=== PATIENT | male | born 1975 | race Caucasian/White ===

== ENCOUNTER 2023-08-31 17:15 | Observation (INO) ==
[2023-08-31 18:06] LABS: Basophils # (auto) 0.06 K/uL (0.00-0.20); Basophils % (auto) 0.9 %; Eosinophils # (auto) 0.16 K/uL (0.00-0.50); Eosinophils % (auto) 2.4 %; Hemoglobin 14.9 g/dl (14.0-18.0); Immature Granulocytes # (auto) 0.01 K/uL (0.01-0.20); Immature Granulocytes % (auto) 0.2 %; Lymphocytes # (auto) 1.33 K/uL (1.20-3.40); Lymphocytes % (auto) 20.3 %; Mean Corpuscular Hemoglobin 29.9 pg (25.0-34.0); Mean Corpuscular Hgb Conc 34.7 g/dL (32.0-36.0); Mean Corpuscular Volume 86.2 fL (80.0-100.0); Monocytes # (auto) 0.56 K/uL (0.11-0.59); Monocytes % (auto) 8.5 %; Neutrophils # (auto) 4.44 K/uL (1.40-6.50); Neutrophils % (auto) 67.7 %; Platelet Count 250 K/uL (130-400); RDW Coefficient of Variation 13.1 % (11.5-14.5); RDW Standard Deviation 40.8 fL (36.4-46.3); Red Blood Count 4.99 M/uL (4.70-6.10); White Blood Count 6.56 K/ul (4.8-10.8)
[2023-08-31 18:16] LABS: Albumin Globulin Ratio 1.8 (0.9-2); BUN Creatinine Ratio 23.3 (10-20); Bilirubin,Total 0.5 mg/dl (0.2-1.0); Calcium 9.7 mg/dl (8.6-10.3); Creatinine Clr Calc Pharmacy 97.1 ml/min; Est GFR (African American) 116.6 ml/min; Est GFR (Non-African American) 100.6 ml/min; Globulin 2.8 gm/dl (2.5-4.0); Total Protein 7.8 gm/dl (6.0-8.3)
[2023-08-31 18:22] LABS: Troponin I High Sensitivity 7.4 pg/ml (0-20)
[2023-08-31 18:25] LABS: Partial Thromboplastin Ratio 1.1; Partial Thromboplastin Time 29.9 Seconds (21.0-31.0); Prothrombin Time 11.1 Seconds (9.0-12.0)
--- NOTE | 2023-08-31 19:01 | XRay Report ---
SINGLE VIEW CHEST CLINICAL HISTORY: Atypical chest pain. FINDINGS: A PA chest radiograph is compared to study dated 07/28/2023. The cardiomediastinal silhouett e is unremarkable. The lungs and pleural spaces are clear. No pneumothorax is seen. The bony thorax i s grossly intact. There is minimal thoracic scoliosis. IMPRESSION: No active disease in the chest. ACT 112: Negative or not required by law. Electronically signed by: Arash Guzman M.D. 08/31/2023 7:00 PM
--- NOTE | 2023-09-01 01:37 | History & Physical Report ---
Date of Service September 01, 2023 Assessment & Plan (1) Chest pain: Plan: 48-year-old male with past med significant for hypertension, chronic coronary microvascular dysfunction, history of coronary vasospasm, anxiety, marijuana smoker presents with chest pain. Chest pain History of coronary vasospasm as mentioned in HPI EKG and initial 2 sets of troponin negative We will follow serial enzymes and echo Consult cardiology in a.m. Monitoring telemetry Skin rash States since mid June is getting macular rash on his extremities involving palm. Mostly happens when he exerts We will check NIK, rheumatoid factor, CRP and hep B and C studies Needs follow-up Hypertension Continue amlodipine and Imdur DVT prophylaxis SCD's Disposition Med/telemetry Full code History of Present Illness Chief Complaint: Chest pain Primary Care Provider: Manuel Cobb MD 48-year-old male with past med significant for hypertension, chronic coronary microvascular dysfunction, history of coronary vasospasm, anxiety, marijuana smoker presents with chest pain. Patient states it all started in June hen he had a rash on his extremities and in his palm and saw PCP and found high blood pressure and was prescribed amlodipine-benazepril. In July [facility] because of chest pain. Troponin were elevated initially 70s and trended up to 190's. Had cardiac cath that showed multivessel disease with 90% proximal LAD lesion. As his coronary vessels were of narrow caliber was transferred to [facility]. At [place] he had another cath with nitroglycerin challenge which showed normal coronaries and thought his symptoms and previous cath findings from coronary vasospasm. He was discharged on amlodipine and Imdur. And advised to stop marijuana smoking. Patient says since then he is doing okay though he had constant mild chest discomfort. He is walking 2 miles a day with some jogging in between. Last Sunday and today the chest pain was 7/10 severity requiring nitroglycerin which helped. Since June he still getting a rash on and off mostly when exerting outside and is worried that he has some bacterial or viral infection and causing all his chest pains. Currently resting comfortably and hemodynamically stable Past medical history. As mentioned above. Past surgical history. Cardiac cath. Dental surgery. Appendectomy. Social history. No smoking. Alcohol socially. Smokes marijuana. Family history. Maternal grandfather has alcoholism. Brother of drug overdose. Father had heart attack and cardiac bypass. Mother-has hypertension. Allergies Allergy/AdvReac Type Severity Reaction Status Date / Time No Known Drug Allergies Allergy Unknown Verified 08/31/23 20:03 Home Medications Medication Instructions Recorded Confirmed Type multivitamin 1 tab PO QAM 07/28/23 08/31/23 History amlodipine 5 mg tablet 5 mg PO QAM 08/31/23 08/31/23 History isosorbide mononitrate 30 mg 30 mg PO QAM 08/31/23 08/31/23 History tablet,extended release 24 hr nitroglycerin 0.4 mg sublingual 0.4 mg sublingual UD PRN Chest Pain 08/31/23 08/31/23 History tablet Past Med/Surg History Medical History HTN, goal below 130/80 Non-ST elevation [place] (NSTEMI) Anxiety HTN (hypertension) Surgical History Hx of appendectomy Family History Other Coronary heart disease Diabetes Family history of Yap's esophagus Social History Smoking Status: Never smoker Hx Alcohol Use: Yes Hx Substance Use: No Preferred Language: Pashto Communication Ability: Effective Oven Laborer Required: No Beliefs That Will Affect Care: None Current Living Situation: Alone Feels Safe at Home: Yes Safety Concerns: Feels Safe At This Time Assistive Devices: Glasses Review of Systems Review of Systems: All systems reviewed & are unremarkable except as noted in HPI & below Physical Exam Physical Exam: General-not in distress Head- atraumatic Eyes- PERRL. ENT- oropharynx clear Neck- supple, no JVD. Lungs- clear to auscultation , no wheezing or crackles. Heart- regular rate and rhythm; no murmur, no gallop. Abdomen- normal bowel sounds, soft, nontender, no distension. Extremities- no pretibial edema, no erythema. Neuro- alert, oriented x 3; PERRL, no facial palsy; no dysarthria; moves extremities Results & Data Results & Data Vital Signs (Past 12 Hours) Vital Signs Temp Pulse Pulse Resp BP BP Pulse Ox 09/01/23 00:00 88 18 171/106 H 99 08/31/23 22:08 92 H 08/31/23 22:03 76 18 164/99 H 97 08/31/23 22:02 97 08/31/23 17:20 36.7 C 114 H 17 143/101 H 99 O2 Del Method 09/01/23 00:00 Room Air 08/31/23 22:08 08/31/23 22:03 Room Air 08/31/23 22:02 Room Air 08/31/23 17:20 Room Air Diagnostic Findings Laboratory Results WBC 6.56 K/ul (4.8-10.8) 08/31/23 17:44 RBC 4.99 M/uL (4.70-6.10) 08/31/23 17:44 Hgb 14.9 g/dl (14.0-18.0) 08/31/23 17:44 Hct 43.0 % (42.0-52.0) 08/31/23 17:44 MCV 86.2 fL (80.0-100.0) 08/31/23 17:44 MCH 29.9 pg (25.0-34.0) 08/31/23 17:44 MCHC 34.7 g/dL (32.0-36.0) 08/31/23 17:44 RDW Std Deviation 40.8 fL (36.4-46.3) 08/31/23 17:44 RDW Coeff of Yumiko 13.1 % (11.5-14.5) 08/31/23 17:44 Plt Count 250 K/uL (130-400) 08/31/23 17:44 MPV 11.0 fL (9.4-12.4) 08/31/23 17:44 Immature Gran % (Auto) 0.2 % 08/31/23 17:44 Neut % (Auto) 67.7 % 08/31/23 17:44 Lymph % (Auto) 20.3 % 08/31/23 17:44 [place] % (Auto) 8.5 % 08/31/23 17:44 Eos % (Auto) 2.4 % 08/31/23 17:44 Baso % (Auto) 0.9 % 08/31/23 17:44 Neut # (Auto) 4.44 K/uL (1.40-6.50) 08/31/23 17:44 Lymph # (Auto) 1.33 K/uL (1.20-3.40) 08/31/23 17:44 [place] # (Auto) 0.56 K/uL (0.11-0.59) 08/31/23 17:44 Eos # (Auto) 0.16 K/uL (0.00-0.50) 08/31/23 17:44 Baso # (Auto) 0.06 K/uL (0.00-0.20) 08/31/23 17:44 Immature Gran # (Auto) 0.01 K/uL (0.01-0.20) 08/31/23 17:44 PT 11.1 Seconds (9.0-12.0) 08/31/23 17:44 INR 1.0 (0.9-1.1) 08/31/23 17:44 APTT 29.9 Seconds (21.0-31.0) 08/31/23 17:44 PTT Ratio 1.1 08/31/23 17:44 Sodium 138 mmol/L (136-145) 08/31/23 17:44 Potassium 4.0 mmol/L (3.5-5.1) 08/31/23 17:44 Chloride 105 mmol/L (98-107) 08/31/23 17:44 Carbon Dioxide 26 mmol/L (21-32) 08/31/23 17:44 Anion Gap 7 (3-11) 08/31/23 17:44 BUN 21 mg/dl (6-23) 08/31/23 17:44 Creatinine 0.90 mg/dl (0.6-1.4) 08/31/23 17:44 Est Cr Clr Drug Dosing 97.1 ml/min 08/31/23 17:44 Est GFR ( Amer) 116.6 ml/min 08/31/23 17:44 Est GFR (Non-Af Amer) 100.6 ml/min 08/31/23 17:44 BUN/Creatinine Ratio 23.3 (10-20) H 08/31/23 17:44 Glucose 99 mg/dl (70-99(Fasting)) 08/31/23 17:44 Calcium 9.7 mg/dl (8.6-10.3) 11/10/23 17:44 Total Bilirubin 0.5 mg/dl (0.2-1.0) 08/31/23 17:44 AST 24 U/L (13-39) 08/31/23 17:44 ALT 24 U/L (7-52) 08/31/23 17:44 Alkaline Phosphatase 74 U/L (34-104) 08/31/23 17:44 Troponin I High Sens 4.2 pg/ml (0-20) 08/31/23 22:26 Total Protein 7.8 gm/dl (6.0-8.3) 08/31/23 17:44 Albumin 5.0 gm/dl (3.4-5.0) 08/31/23 17:44 Globulin 2.8 gm/dl (2.5-4.0) 08/31/23 17:44 Albumin/Globulin Ratio 1.8 (0.9-2) 08/31/23 17:44 Impressions Chest X-Ray 08/31/23 17:24 SINGLE VIEW CHEST CLINICAL HISTORY: Atypical chest pain. FINDINGS: A PA chest radiograph is compared to study dated 07/28/2023. The cardiomediastinal silhouette is unremarkable. The lungs and pleural spaces are clear. No pneumothorax is seen. The bony thorax is grossly intact. There is minimal thoracic scoliosis. IMPRESSION: No active disease in the chest. ACT 112: Negative or not required by law. Electronically signed by: Arash Guzman M.D. 08/31/2023 7:00 PM ECG Additional Comments: ECG. Normal sinus rhythm rate of 74. Nonspecific ST abnormalities. Code Status & VTE Plan VTE Prophylaxis Plan VTE Prophylaxis will be ordered: Yes
[2023-09-01] MEDS ORDERED: ACETAMINOPHEN 325 MG TAB PO PRN (01:38)
[2023-09-01] MEDS ORDERED: NITROGLYCERIN SL 0.4 MG/TAB TAB SL PRN (01:38)
[2023-09-01] MEDS ORDERED: POLYETHYLENE (MIRALAX) 17 GM PACK PO PRN (01:38)
--- NOTE | 2023-09-01 02:29 | Emergency Department Note ---
History of Present Illness General Chief complaint: Chest Pain Stated complaint: RT ARM NUMBNESS, CHEST PAIN, TOOK NITRO Time Seen by Provider: 08/31/23 22:01 History of Present Illness This is a 48-year-old male presenting to the emergency department for evaluation of chest pain. Patient has a fairly remarkable history over the past month. He was evaluated at this facility in early July where he was diagnosed with NSTEMI. He did have elevated troponin but essentially normal EKG. He did undergo cardiac angiography, which showed 90% LAD lesion. Evidently the patient had small vessels and catheters could not be placed. He was transferred to [facility] in [place] for possible CABG. While at that facility he underwent a second cardiac angiography, which showed normal coronary arteries. The patient was diagnosed with coronary artery spasm, which seem to have resolved by the time he was at [facility]. The patient has been following with his [facility] PCP and is currently on Imdur and amlodipine. Patient states that he has not had any significant difficulty with most activities. He is able to walk briskly for roughly 2 miles per day. The patient is here tonight as earlier this morning he had an episode of chest pain that was similar to his NSTEMI a month ago. He did take nitroglycerin which relieved his symptoms. The patient has not had fevers or chills. No shortness of breath. No dyspnea on exertion. He rates his initial discomfort an 8/10, but currently it is a 2/10. Home Medications Medication Instructions Recorded Confirmed Type multivitamin 1 tab PO QAM 07/28/23 08/31/23 History amlodipine 5 mg tablet 5 mg PO QAM 08/31/23 08/31/23 History isosorbide mononitrate 30 mg 30 mg PO QAM 08/31/23 08/31/23 History tablet,extended release 24 hr nitroglycerin 0.4 mg sublingual 0.4 mg sublingual UD PRN Chest Pain 08/31/23 08/31/23 History tablet Allergies Allergy/AdvReac Type Severity Reaction Status Date / Time No Known Drug Allergies Allergy Unknown Verified 08/31/23 20:03 Past Med/Surg History Medical History HTN, goal below 130/80 Non-ST elevation CT (NSTEMI) Anxiety HTN (hypertension) Surgical History Hx of appendectomy Family History Other Coronary heart disease Diabetes Family history of Yap's esophagus Social History Smoking Status: Never smoker Hx Alcohol Use: Yes Hx Substance Use: No Preferred Language: Armenian Communication Ability: Effective Lump Room Supervisor Required: No Beliefs That Will Affect Care: None Current Living Situation: Alone Feels Safe at Home: Yes Safety Concerns: Feels Safe At This Time Assistive Devices: Glasses Review of Systems A total of 10 systems reviewed and were otherwise negative Physical Exam Vital Signs Vital Signs - 24 hr 08/31/23 17:20 08/31/23 22:02 08/31/23 22:03 Temperature 36.7 C Temperature Source Temporal Artery Scan Pulse Rate 114 H Pulse Rate [Apical] 76 Respiratory Rate 17 18 Respiratory Effort / Characteristics Non-Labored Spontaneous Non-Labored Spontaneous Respiratory Depth Normal Normal Respiratory Pattern Regular Blood Pressure 143/101 H Blood Pressure [Right Arm] 164/99 H Blood Pressure Mean 115 Blood Pressure Mean [Right Arm] 120 Pulse Oximetry 99 97 97 Oxygen Delivery Method Room Air Room Air Room Air Sepsis Recent Fever Within 48 Hours No Sepsis New/Unexplained Change in Mental Status No Sepsis Action Taken by Nursing No Action Required 08/31/23 22:08 09/01/23 00:00 Temperature Temperature Source Pulse Rate 92 H Pulse Rate [Apical] 88 Respiratory Rate 18 Respiratory Effort / Characteristics Non-Labored Spontaneous Respiratory Depth Normal Respiratory Pattern Regular Blood Pressure Blood Pressure [Right Arm] 171/106 H Blood Pressure Mean Blood Pressure Mean [Right Arm] 127 Pulse Oximetry 99 Oxygen Delivery Method Room Air Sepsis Recent Fever Within 48 Hours Sepsis New/Unexplained Change in Mental Status Sepsis Action Taken by Nursing VITALS: Vitals are noted on the nurse's note and reviewed by myself. Vital signs stable. GENERAL: Well-developed, well-nourished, white male, who is in no acute distress and resting comfortably. Patient is cooperative with the examination. HEAD: Normocephalic atraumatic. EARS: External ear normal. External auditory canals clear, tympanic membranes pearly che without erythema or effusion bilaterally. EYES: Pupils equal round and reactive to light and accommodation. Conjunctivae without injection, sclerae without icterus. Extraocular movements intact. NOSE: Patent, turbinates without inflammation or discharge. MOUTH: Mucous membranes moist. Tonsils are not enlarged. Pharynx without erythema, blood, or exudate. Uvula midline. Airway patent. NECK: Supple without nuchal rigidity. No lymphadenopathy. No thyromegaly. Cervical spine is nontender. HEART: Regular rate and rhythm without murmurs gallops or rubs. LUNGS: Clear to auscultation bilaterally without wheezes, rales or rhonchi. No retractions or accessory muscle use. ABDOMEN: Positive normal bowel sounds x 4. Soft, nontender, without masses or organomegaly. No guarding or rebound tenderness. MUSCULOSKELETAL: No muscle atrophy, erythema, or edema noted. Full range of motion in all extremities. Medical Decision Making Differential Diagnosis Differential diagnosis includes, but is not limited to: Myocardial infarction, dysrhythmia, pericarditis, pneumothorax, aortic aneurysm/dissection, DVT/PE, anxiety, GERD, PUD, electrolyte imbalance, thyroid disorder, pneumonia, bronchitis, pancreatitis, and others Laboratory Data 09/01/23 05:25 08/31/23 17:44 Lab Results 08/31/23 08/31/23 Range/Units 17:44 22:26 WBC 6.56 (4.8-10.8) K/ul RBC 4.99 (4.70-6.10) M/uL Hgb 14.9 (14.0-18.0) g/dl Hct 43.0 (42.0-52.0) % MCV 86.2 (80.0-100.0) fL MCH 29.9 (25.0-34.0) pg MCHC 34.7 (32.0-36.0) g/dL RDW Std Deviation 40.8 (36.4-46.3) fL RDW Coeff of Yumiko 13.1 (11.5-14.5) % Plt Count 250 (130-400) K/uL MPV 11.0 (9.4-12.4) fL Immature Gran % (Auto) 0.2 % Neut % (Auto) 67.7 % Lymph % (Auto) 20.3 % Page % (Auto) 8.5 % Eos % (Auto) 2.4 % Baso % (Auto) 0.9 % Neut # (Auto) 4.44 (1.40-6.50) K/uL Lymph # (Auto) 1.33 (1.20-3.40) K/uL Page # (Auto) 0.56 (0.11-0.59) K/uL Eos # (Auto) 0.16 (0.00-0.50) K/uL Baso # (Auto) 0.06 (0.00-0.20) K/uL Immature Gran # (Auto) 0.01 (0.01-0.20) K/uL PT 11.1 (9.0-12.0) Seconds INR 1.0 (0.9-1.1) APTT 29.9 (21.0-31.0) Seconds PTT Ratio 1.1 Sodium 138 (136-145) mmol/L Potassium 4.0 (3.5-5.1) mmol/L Chloride 105 (98-107) mmol/L Carbon Dioxide 26 (21-32) mmol/L Anion Gap 7 (3-11) BUN 21 (6-23) mg/dl Creatinine 0.90 (0.6-1.4) mg/dl Est Cr Clr Drug Dosing 97.1 ml/min Est GFR ( Amer) 116.6 ml/min Est GFR (Non-Af Amer) 100.6 ml/min BUN/Creatinine Ratio 23.3 H (10-20) Glucose 99 (70-99(Fasting)) mg/dl Calcium 9.7 (8.6-10.3) mg/dl Total Bilirubin 0.5 (0.2-1.0) mg/dl AST 24 (13-39) U/L ALT 24 (7-52) U/L Alkaline Phosphatase 74 (34-104) U/L Troponin I High Sens 7.4 4.2 (0-20) pg/ml Total Protein 7.8 (6.0-8.3) gm/dl Albumin 5.0 (3.4-5.0) gm/dl Globulin 2.8 (2.5-4.0) gm/dl Albumin/Globulin Ratio 1.8 (0.9-2) Imaging Data Radiologist's Impression: Chest X-Ray 08/31/23 17:24 SINGLE VIEW CHEST CLINICAL HISTORY: Atypical chest pain. FINDINGS: A PA chest radiograph is compared to study dated 07/28/2023. The cardiomediastinal silhouette is unremarkable. The lungs and pleural spaces are clear. No pneumothorax is seen. The bony thorax is grossly intact. There is minimal thoracic scoliosis. IMPRESSION: No active disease in the chest. ACT 112: Negative or not required by law. Electronically signed by: Arash Guzman M.D. 08/31/2023 7:00 PM ECG Data Additional Comments: EKG #1: 31-AUG-2023 17:38:40 Normal sinus rhythm @[address] abnormality When compared with ECG of 30-JUL-2023 06:00, Vent. rate has increased BY 39 BPM EKG#2 31-AUG-2023 22:29:25 Normal sinus rhythm @[address] abnormality When compared with ECG of 31-AUG-2023 17:38, No significant change was found MDM Narrative Physical exam and history were performed. Nursing notes, EMR, and Medication List were personally reviewed. No social concerns were identified as barriers to patients care. Patient appears to have chest pain bringing him to the ER. He has an atypical history over the past several weeks. IV access was established and labs were obtained. Patient was seen during a period of very high ER volume and acuity with extended wait times. Nursing protocol order have been performed and some of these are available for my review at the time of patient encounter. An order was placed for continuous cardiac monitoring. The monitor shows a rate of 71 with normal sinus rhythm. Patient's blood work is as above and was reviewed. He does not have a significantly elevated white blood cell count, gross anemia, bandemia, or significant electrolyte imbalance. Transaminases are not diagnostic. Troponin x2 are both negative. Initial EKG and repeat EKG did not show obvious acute ectopy or ST elevation. Case was discussed with with Dr. Og of [facility] cardiology. The recommendation was for repeat troponin, which did ultimately returned normal. Concern is that if the patient continues to have pain and discomfort he will need to have further evaluation in the hospital. On reevaluation the patient continues to have waxing and waning symptoms. His heart score is at least moderate risk, and because of this the case was discussed with the on-call [facility] hospitalist. Please see their dictation for further patient course, plan, and disposition. The chart was completed utilizing [employer] Speech Voice Recognition Software. Grammatical errors, random word insertions, pronoun errors, and incomplete sentences are an occasional consequence of this system due to software limitations, ambient noise, and hardware issues. Any formal questions or concerns about the content, text, or information contained within the body of this dictation should be directly addressed to the provider for clarification. . Impression & Plan Chest pain, History of non-ST elevation myocardial infarction (NSTEMI) Discharge Plan Visit Data Chief Complaint: Chest Pain Stated Complaint: RT ARM NUMBNESS, CHEST PAIN, TOOK NITRO ED Provider: Urmila Segundo ED Midlevel Provider: Mendel Lemus Discharge Problem: Chest pain, History of non-ST elevation myocardial infarction (NSTEMI) Patient Disposition: Admitted As Inpatient Discharge Instructions Interventions: ED Discharge Assessment Last Done: 09/01/23 01:37
[2023-09-01 05:56] LABS: Basophils # (auto) 0.07 K/uL (0.00-0.20); Basophils % (auto) 1.3 %; Eosinophils # (auto) 0.23 K/uL (0.00-0.50); Eosinophils % (auto) 4.2 %; Hematocrit (blood only) 41.3 % (42.0-52.0); Hemoglobin 14.3 g/dl (14.0-18.0); Lymphocytes # (auto) 1.71 K/uL (1.20-3.40); Lymphocytes % (auto) 31.4 %; Mean Corpuscular Hemoglobin 29.8 pg (25.0-34.0); Mean Corpuscular Hgb Conc 34.6 g/dL (32.0-36.0); Mean Platelet Volume 10.9 fL (9.4-12.4); Monocytes # (auto) 0.56 K/uL (0.11-0.59); Monocytes % (auto) 10.3 %; Neutrophils # (auto) 2.88 K/uL (1.40-6.50); Neutrophils % (auto) 52.8 %; Platelet Count 221 K/uL (130-400); RDW Coefficient of Variation 13.1 % (11.5-14.5); RDW Standard Deviation 40.4 fL (36.4-46.3); White Blood Count 5.45 K/ul (4.8-10.8)
[2023-09-01 06:16] LABS: Anion Gap 4 (3-11); Blood Urea Nitrogen 16 mg/dl (6-23); C Reactive Protein < 0.50 mg/dl (0-0.5); Calcium 9.6 mg/dl (8.6-10.3); Carbon Dioxide 29 mmol/L (21-32); Chloride 105 mmol/L (98-107); Creatinine Clr Calc Pharmacy 98.2 ml/min; Est GFR (African American) 117.2 ml/min; Est GFR (Non-African American) 101.1 ml/min; Glucose 94 mg/dl (70-99(Fasting)); Magnesium 2.1 mg/dl (1.7-2.4); Potassium 3.7 mmol/L (3.5-5.1); Sodium 138 mmol/L (136-145)
[2023-09-01 06:30] LABS: Troponin I High Sensitivity 4.2 pg/ml (0-20)
--- NOTE | 2023-09-01 06:51 | Cardiology Consultation ---
Date of Consultation September 01, 2023 Assessment & Plan (1) Coronary artery vasospasm: - Patient's recent history reviewed in his chart, he was seen and examined, extensive interview took place. Repeat EKG this morning 09/01/2023 at 7:51 AM reveals normal sinus rhythm with normal ST segments. No evidence of ischemia. -Bedside echocardiogram performed this morning and reviewed independently reveals normal findings. -I reviewed the angiography films both at this institution and those that took place at [facility]. -Patient's recurrent chest discomfort episodes yesterday and week ago both took place in the absence of aerobic exertion. Symptoms yesterday resolved with sublingual nitroglycerin and compatible with previous diagnosis of variant angina/coronary vasospasm. -Medication therapy: Discontinue isosorbide mononitrate 30 mg in favor of nitroglycerin patch. 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 He has not been discharged on aspirin at the time of discharge from [facility] as it was felt that his symptoms were not due to atherosclerosis. We will hold off on aspirin for now in an effort to simplify of his medication regimen to some degree. -We will advance diet. Findings thus far reassuring. If patient feeling well after a.m. meal, would consider discharge. (2) HTN (hypertension): - Continue nitroglycerin patch and amlodipine. Future considerations include adding an alternative such as losartan for additional blood pressure control as outpatient. Patient has made extensive lifestyle changes, including heart healthy diet. (3) Dyslipidemia: - Patient's LDL had been in the 150s at time of recent hospital stay. Although his recent work-up suggest that his symptoms are not due to coronary atherosclerosis he does have a strong family history of premature coronary heart disease, I would recommend statin therapy to prevent future atherosclerosis. Patient agreeable to this approach. History of Present Illness Attending Physician: Ne Marshall MD History of Present Illness Lon Alvarado is a 40-year-old male seen in cardiology consultation per the request of Dr Mott for evaluation of chest discomfort. The patient's recent history dates back to June, when he started noting an erythematous rash with aerobic exertion. He established with a PCP and was noted to have a systolic BP in [id number].He started amlodipine. 07/28/2023 when he presented to the emergency department at [facility] with chest discomfort and epigastric discomfort. EKG revealed no definitive repolarization changes to suggest ischemia. High-sensitivity troponin was trended x4 measurements and peaked at 197.9 PG per mL. Echocardiogram revealed mild concentric left ventricular hypertrophy, normal left ventricular wall motion, normal LVEF in the range of 60-65%, normal right ventricular chamber size and systolic function, no significant valvular heart disease and grade 1 diastolic dysfunction. Patient was seen in cardiology consultation by Dr. Sanderson of our practice and underwent invasive coronary angiography on 07/30/2023 revealing diffusely narrowed coronary arteries and a 90% diffuse proximal stenosis of the left anterior descending coronary artery, diffusely diseased first and second diagonal, 50% proximal circumflex lesion. Patient was transferred to [facility] for further assessment. While there his case was reviewed in a multiple disciplinary fashion by cardiology and cardio vascular surgery. The patient underwent repeat invasive coronary angiography on 07/31/2023 at [facility] with administration of nitroglycerin with findings suggestive of previous vasospasm, with out obstructive disease on cardiac catheterization at that time. The patient had endorsed recent history of multiple psychosocial stressors, long-term use of marijuana. The patient was discharged with medications to address coronary vasospasm including amlodipine, isosorbide mononitrate, and nitroglycerin to be utilized on a as needed basis. Since discharge the patient describes being adherent with his medications. He has been exercising regularly walking a distance of 2 miles a day and doing some jogging as well. Last week on Sunday and again yesterday he had episodes of chest discomfort relieved with sublingual nitroglycerin. His discomfort yesterday happened yesterday , rest when he had just gotten out of bed. EKG tracings performed x2 in the emergency room yesterday evening revealed sinus rhythm with mild nonspecific repolarization changes, unchanged compared to previous tracings. High sensitive troponin has been measured x3 thus far at 1744 yesterday, 20-26 yesterday, and again at 5:25 AM with measurements of 7.4, 4.2, and 4.2 PG per mL x3 (normal). This am he has mild residual right sided chest pain. He is comfortable. Social History: lives alone Uses medical THC, has cut back on THC and ETOH since recent hospital discharge, and has not used THC in a week Family History: father CABG 45 years old, smoker Allergies Allergy/AdvReac Type Severity Reaction Status Date / Time No Known Drug Allergies Allergy Unknown Verified 08/31/23 20:03 Home Medications Medication Instructions Recorded Confirmed Type multivitamin 1 tab PO QAM 07/28/23 08/31/23 History amlodipine 5 mg tablet 5 mg PO QAM 08/31/23 08/31/23 History isosorbide mononitrate 30 mg 30 mg PO QAM 08/31/23 08/31/23 History tablet,extended release 24 hr nitroglycerin 0.4 mg sublingual 0.4 mg sublingual UD PRN Chest Pain 08/31/23 08/31/23 History tablet Patient History Medical History HTN, goal below 130/80 Non-ST elevation DE (NSTEMI) Anxiety HTN (hypertension) Surgical History Hx of appendectomy Family History Other Coronary heart disease Diabetes Family history of Yap's esophagus Social History Smoking Status: Never smoker Hx Alcohol Use: Yes Hx Substance Use: No Preferred Language: Uruguayan Communication Ability: Effective Venereal Disease Investigator Required: No Beliefs That Will Affect Care: None Current Living Situation: Alone Feels Safe at Home: Yes Safety Concerns: Feels Safe At This Time Assistive Devices: Glasses Review of Systems Review of Systems: All systems reviewed & are unremarkable except as noted in HPI & below Physical Exam Physical Exam: Temp Pulse Resp BP Pulse Ox O2 Del Method 36.7 C 71 14 138/103 H 97 Room Air 08/31/23 17:20 09/01/23 04:00 09/01/23 04:00 09/01/23 04:00 09/01/23 04:00 09/01/23 03:47 Constitutional: WD/WN, vitals as above Eyes: PERRL, conjunctivae normal, anicteric sclerae Respiratory: normal respiratory effort, lungs clear to auscultation Cardiovascular: RRR, no murmur, no edema Gastrointestinal (Abdomen): normal bowel sounds, soft, nontender, no hepatosplenomegaly Neurologic: PERRL, EOMI, accommodation nl, no face palsy, no dysarthria Results & Data Vital Signs (Past 12 Hours) Vital Signs Pulse Pulse Resp BP BP Pulse Ox O2 Del Method 09/01/23 04:00 71 14 138/103 H 97 09/01/23 03:47 Room Air 09/01/23 03:00 68 12 143/84 H 96 09/01/23 00:00 88 18 171/106 H 99 Room Air 08/31/23 22:08 92 H 08/31/23 22:03 76 18 164/99 H 97 Room Air 08/31/23 22:02 97 Room Air Laboratory Results Cardiac Enzymes 08/31/23 08/31/23 09/01/23 Range/Units 17:44 22:26 05:25 AST 24 (13-39) U/L Troponin I High Sens 7.4 4.2 4.2 (0-20) pg/ml Coagulation 08/31/23 Range/Units 17:44 PT 11.1 (9.0-12.0) Seconds APTT 29.9 (21.0-31.0) Seconds CBC 08/31/23 09/01/23 Range/Units 17:44 05:25 WBC 6.56 5.45 (4.8-10.8) K/ul RBC 4.99 4.80 (4.70-6.10) M/uL Hgb 14.9 14.3 (14.0-18.0) g/dl Hct 43.0 41.3 L (42.0-52.0) % Plt Count 250 221 (130-400) K/uL Neut # (Auto) 4.44 2.88 (1.40-6.50) K/uL Lymph # (Auto) 1.33 1.71 (1.20-3.40) K/uL [place] # (Auto) 0.56 0.56 (0.11-0.59) K/uL Eos # (Auto) 0.16 0.23 (0.00-0.50) K/uL Baso # (Auto) 0.06 0.07 (0.00-0.20) K/uL Comprehensive Metabolic Panel 08/31/23 09/01/23 Range/Units 17:44 05:25 Sodium 138 138 (136-145) mmol/L Potassium 4.0 3.7 (3.5-5.1) mmol/L Chloride 105 105 (98-107) mmol/L Carbon Dioxide 26 29 (21-32) mmol/L BUN 21 16 (6-23) mg/dl Creatinine 0.90 0.89 (0.6-1.4) mg/dl Glucose 99 94 (70-99(Fasting)) mg/dl Calcium 9.7 9.6 (8.6-10.3) mg/dl AST 24 (13-39) U/L ALT 24 (7-52) U/L Alkaline Phosphatase 74 (34-104) U/L Total Protein 7.8 (6.0-8.3) gm/dl Albumin 5.0 (3.4-5.0) gm/dl Intake and Output 08/31/23 09/01/23 09/01/23 22:59 06:59 14:59 Other: Weight 75.6 kg 75.6 kg Weight Measurement Method Chair Scale Chair Scale (2) HTN (hypertension) Hypertension type: primary hypertension Qualified Code(s): I10 - Essential (primary) hypertension
[2023-09-01] MEDS ORDERED: METOPROLOL SUCC 25MG EXT REL TAB PO ONE (07:30)
[2023-09-01] MEDS ORDERED: ATORVASTATIN 10 MG TAB PO ONE (07:30)
[2023-09-01] MEDS ORDERED: NITROGLYCERIN 0.4 MG/HR PATCH TD SCH (09:00)
[2023-09-01] MEDS ORDERED: amLODIPine BESYLATE 5 MG TAB PO SCH (09:00)
[2023-09-01] MEDS ORDERED: ISOSORBIDE MONO EXTENDED REL 30 MG TABCR PO SCH (09:00)
[2023-09-01] MEDS ORDERED: MULTIVITAMIN TAB PO SCH (09:00)
[2023-09-01] MEDS ORDERED: LORATADINE 10 MG TAB PO ONE (09:30)
[2023-09-01] MEDS ORDERED: FLUTICASONE PROPIONATE NA SPR 16 GM BTL SCH (09:30)
[2023-09-01 10:31] LABS: Procalcitonin < 0.05 ng/ml (0-0.5)
[2023-09-01 10:32] LABS: Lyme Ab IgG w/WB Rflx Negative (Negative)
[2023-09-01 10:41] LABS: Lyme Ab IgM w/WB Rflx Positive (Negative)
--- NOTE | 2023-09-01 10:54 | Communication Note ---
Date of Service: September 01, 2023 Patient reassessed. He states he felt a little "woozy "after receiving his morning medications, but denies chest discomfort. He had breakfast which he tolerated well. He is stable from a cardiac perspective to be discharged after lunch if he continues to feel well.
--- NOTE | 2023-09-01 14:29 | Discharge Summary ---
Discharge Summary Date of Service September 01, 2023 Notes For Next Care Provider Medication Changes From Visit Discontinue isosorbide mononitrate 30 mg Started nitroglycerin patch Started Metoprolol XL 25mg daily Started Atorvastatin 10mg daily Started flonase Started loratidine Admission HPI Per Admitting Provider 48-year-old male with past med significant for hypertension, chronic coronary microvascular dysfunction, history of coronary vasospasm, anxiety, marijuana smoker presents with chest pain. Patient states it all started in June when he had a rash on his extremities and in his palm and saw PCP and found high blood pressure and was prescribed amlodipine-benazepril. In July [facility] because of chest pain. Troponin were elevated initially 70s and trended up to 190's. Had cardiac cath that showed multivessel disease with 90% proximal LAD lesion. As his coronary vessels were of narrow caliber was transferred to [facility]. At [facility] he had another cath with nitroglycerin challenge which showed normal coronaries and thought his symptoms and previous cath findings from coronary vasospasm. He was discharged on amlodipine and Imdu r. And advised to stop marijuana smoking. Patient says since then he is doing okay though he had constant mild chest discomfort. He is walking 2 miles a day with some jogging in between. Last Sunday and today the chest pain was 7/10 severity requiring nitroglycerin which helped. Since June he still getting a rash on and off mostly when exerting outside and is worried that he has some bacterial or viral infection and causing all his chest pains. Currently resting comfortably and hemodynamically stable Past medical history. As mentioned above. Past surgical history. Cardiac cath. Dental surgery. Appendectomy. Social history. No smoking. Alcohol socially. Smokes marijuana. Family history. Maternal grandfather has alcoholism. Brother of drug overdose. Father had heart attack and cardiac bypass. Mother-has hypertension. Admission Exam Per Admitting Provider General-not in distress Head- atraumatic Eyes- PERRL. ENT- oropharynx clear Neck- supple, no JVD. Lungs- clear to auscultation , no wheezing or crackles. Heart- regular rate and rhythm; no murmur, no gallop. Abdomen- normal bowel sounds, soft, nontender, no distension. Extremities- no pretibial edema, no erythema. Neuro- alert, oriented x 3; PERRL, no facial palsy; no dysarthria; moves extremities Principal Dx & Hospital Course #1 = Principal Diagnosis (1) HTN, goal below 130/80: (2) History of non-ST elevation myocardial infarction (NSTEMI): (3) Hyperlipidemia: (4) Allergic rhinitis: Plan Mr Lon Alvarado is a 48 year old gentleman with history coronary artery vasospasm who was admitted for ACS rule out. Patient was evaluated for chest pain by cardiology and symptoms do not seem to correspond to ACS--multiple medications were adjusted to aid in managing symptoms. Patient with multiple other concerns, including rash with exertion, dry cough and sinus congestion, as well as questionable GERD concerns. Exam was consistent with post-nasal drip--patient agreeable to flonase/claritin regimen. Patient verbalized understanding of new medications recommended by Cardiology. On day of discharge, patient was pain free, eating well, and ambulating without difficulty. #Coronary artery vasospasm/variant angina EKG this morning 09/01/2023 normal sinus rhythm with normal ST segments. No evidence of ischemia. -Bedside echocardiogram without acute abnormalities -Medication therapy: Discontinue isosorbide mononitrate 30 mg -Started nitroglycerin patch - Continue with amlodipine. #HTN (hypertension): - Continue nitroglycerin patch and amlodipine. - Continue extensive lifestyle changes, including heart healthy diet. 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 -Flonase daily -Trial loratadine 10mg -Follow up with PCP #Cough -Seasonal allergy control as above -Can consider trial of Pepcid/Protonix, or acid jasbir medication over the counter Discharge Exam ENMT bilateral erythematous turbinates with cobblestoning in oropharynx Cardiovascular RRR, no murmur, no edema Gastrointestinal (Abdomen) normal bowel sounds, soft, nontender, no hepatosplenomegaly Musculoskeletal no cyanosis or clubbing, extremities motor strength 5/5 Neurologic PERRL, EOMI, accommodation nl, no face palsy, no dysarthria Updated Medication List Medication Instructions Recorded Confirmed Type multivitamin 1 tab PO QAM 07/28/23 08/31/23 History amlodipine 5 mg tablet 5 mg PO QAM 08/31/23 08/31/23 History atorvastatin 10 mg tablet 10 mg PO QAM 30 days #30 tabs 09/01/23 Rx fluticasone propionate 50 2 spray NA DAILY 30 days #25 grams 09/01/23 Rx mcg/actuation nasal spray,suspension loratadine 10 mg tablet 10 mg PO DAILY #30 tabs 09/01/23 Rx metoprolol succinate 25 mg 25 mg PO QAM 30 days #30 tabs 09/01/23 Rx tablet,extended release 24 hr nitroglycerin 0.4 mg/hr 1 patch transdermal QAM 30 days 09/01/23 Rx transdermal 24 hour patch #30 ea (Nitro-Dur) Hospital Stay Data Consultations 09/01/23 00:18 ED Decision to Admit Stat 09/01/23 08:00 Consult Cardiology Routine Pending Results Patient Have Any Pending Studies at Discharge: Yes (Autoimmune panel and Lyme/Tick panel) Discharge Instructions Given to Patient (Per Discharging Provider) Here is a break down of the current issues you are experiencing: #Coronary artery vasospasm/variant angina EKG this morning 09/01/2023 normal sinus rhythm with normal ST segments. No evidence of ischemia. -Bedside echocardiogram without acute abnormalities -Medication therapy: Discontinue isosorbide mononitrate 30 mg in favor of nitroglycerin patch Continue with amlodipine. Start Metoprolol 25mg daily #HTN (hypertension): - Continue nitroglycerin patch and amlodipine. - Continue extensive lifestyle changes, including heart healthy diet. 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 These can take up to 7-14 days to result. Total Time Total Time Spent Total Time Spent (In Minutes): 55
[2023-09-02] MEDS ORDERED: METOPROLOL SUCC 25MG EXT REL TAB PO SCH (09:00)
[2023-09-02] MEDS ORDERED: ATORVASTATIN 10 MG TAB PO SCH (09:00)
--- NOTE | 2023-09-02 19:34 | Electrocardiogram Report ---
Test Reason : Blood Pressure : / mmHG Vent. Rate : 096 BPM Atrial Rate : 096 BPM P-R Int : 156 ms QRS Dur : 082 ms QT Int : 328 ms P-R-T Axes : 067 066 060 degrees QTc Int : 414 ms Normal sinus rhythm Nonspecific ST abnormality Abnormal ECG When compared with ECG of 30-JUL-2023 06:00, Vent. rate has increased BY 39 BPM Confirmed by Anoml Plasencia ([id number]) on 09/02/2023 7:33:30 PM Referred By: REFERRED SELF Confirmed By:Anmol Plasencia
--- NOTE | 2023-09-02 19:39 | Electrocardiogram Report ---
Test Reason : Blood Pressure : / mmHG Vent. Rate : 074 BPM Atrial Rate : 074 BPM P-R Int : 178 ms QRS Dur : 080 ms QT Int : 386 ms P-R-T Axes : 052 033 054 degrees QTc Int : 428 ms Normal sinus rhythm Nonspecific ST abnormality Abnormal ECG When compared with ECG of 31-AUG-2023 17:38, (unconfirmed) No significant change was found Confirmed by Anmol Plasencia ([id number]) on 09/02/2023 7:39:04 PM Referred By: REFERRED SELF Confirmed By:Anmol Plasencia
--- NOTE | 2023-09-02 19:56 | Electrocardiogram Report ---
Test Reason : Blood Pressure : / mmHG Vent. Rate : 066 BPM Atrial Rate : 066 BPM P-R Int : 184 ms QRS Dur : 082 ms QT Int : 392 ms P-R-T Axes : 051 044 060 degrees QTc Int : 410 ms Normal sinus rhythm Normal ECG When compared with ECG of 31-AUG-2023 22:29, (unconfirmed) No significant change was found Confirmed by Anmol Plasencia ([id number]) on 09/02/2023 7:55:42 PM Referred By: REFERRED SELF Confirmed By:Anmol Plasencia
[2023-09-03 11:07] LABS: Anti Nuclear Antibody Screen POSITIVE (NEGATIVE); HBSAG NON-REACTIVE (NON-REACTIVE); Rheumatoid Factor <14 IU/mL (<14)
[2023-09-04 10:37] LABS: ANA Pattern Nuclear, Speckled; ANA Titer 1:40 titer
[2023-09-04 16:22] LABS: Babesia microti DNA Not Detected (Not Detected)
[2023-09-04 17:27] LABS: 18KDIGG Band NON-REACTIVE; 23KDIGG Band NON-REACTIVE; 23KDIGM Band REACTIVE; 28KDIGG Band NON-REACTIVE; 30KDIGG Band NON-REACTIVE; 39KDIGG Band REACTIVE; 39KDIGM Band REACTIVE; 41KDIGG Band REACTIVE; 41KDIGM Band REACTIVE; 45KDIGG Band REACTIVE; 58KDIGG Band NON-REACTIVE; 66KDIGG Band NON-REACTIVE; 93KDIGG Band NON-REACTIVE; Lyme Antibodies, WB IgG NEGATIVE (NEGATIVE); Lyme Antibodies, WB IgM POSITIVE (NEGATIVE)
--- OUTSIDE RECORDS SUMMARY | 2023-09-04 17:32 | External Medical Summary | Summary of Care ---
Author Name Unknown Organization [facility] Address [address] [address] Phone [phone] Care Team Providers Care Caustic Purification Operator Name Role Phone Jordyn MILTON MD, John E Primary Care Provider [phone] Reason for Visit * Reason Onset Date Comments Letter Requests 08/08/2023 Encounter Details Date Type Department Care Team ([facility] st Contact Info) Description 08/08/2023 Telephone Family Practice [facility] [address] [place] [address] Manuel Cobb III, MD [address] [place] [address] Letter Requests Allergies No known active allergiesdocumented as of this encounter (statuses as of 08/21/2023) Medications Medication Sig Dispensed Refills Start Date End Date Status amLODIPine Besylate 5 MG Oral Tablet (Norvasc) Take 1 Tablet by mouth in the morning. Do not start before August 01, 2023. 30 Tablet 11 08/01/2023 Active Isosorbide Mononitrate ER 30 MG Oral Tablet Extended Release 24 Hour (Imdur) Take 1 Tablet by mouth in the morning. Do not start before August 01, 2023. 30 Tablet 11 08/01/2023 Active Nitroglycerin 0.4 MG Sublingual Tablet Sublingual (Nitrostat) Place 1 Tablet under the tongue every 5 minutes as needed for Pain, Chest. up to 3 doses in 15 minutes 75 Tablet 3 07/31/2023 Active documented as of this encounter (statuses as of 08/21/2023) Active Problems Problem Noted Date Diagnosed Date Marijuana smoker 07/31/2023 Anxiety 07/31/2023 HTN (hypertension) 07/31/2023 History of coronary vasospasm 07/31/2023 Chronic coronary microvascular dysfunction 07/31 documented as of this encounter (statuses as of 08/21/2023) Resolved Problems Problem Noted Date Diagnosed Date Resolved Date CAD (coronary artery disease) 07/31/2023 07/31/2023 NSTEMI (non-ST elevated myoc ardial infarction) 07/31/2023 07/31/2023 documented as of this encounter (statuses as of 08/21/2023) Social History Tobacco Use Types Packs/Day Years Used Date Smoking Tobacco: Never Smokeless Tobacco: Never Alcohol Use Standard Drinks/Week Comments Yes 0 (1 standard drink = 0.6 oz pur e alcohol) Socially Sex and Gender Information Value Date Recorded Sex Assigned at Not on file Gender Identity Not on file Sexual Orientation Not on file Job Start Date Occupation Industry Not on file Not on file Not on file documented as of this encounter Miscellaneous Notes * Telephone Encounter - Eileen Nuñez LPN - 08/21/2023 1:14 PM EDT Read MyG * Telephone Encounter - Eileen Nuñez LPN - 08/21/2023 12:17 PM EDT MyG sent * Telephone Encounter - Eileen Nuñze LPN - 08/10/2023 2:44 PM EDT Left message for pt to call back. 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 Fax number: n/a Number to be called when ready to be picked up: [phone] Date needed: 08/08/23 documented in this encounter Plan of Treatment Upcoming Encounters Date Type Department Care Team (Late st Contact Info) Description 11/07/2023 1:40 PM EST Office Visit Family Practice [facility] [place] [address] [address] Manuel Cobb III, MD [address] [place] [address] Health Maintenance Due Date Last Done Comments Hepatitis B (1 of 3 - 3-dose series) 1975 Depression Screening 1987 HIV Screening 1990 Albumin/Creatinine Ratio 1993 Hepatitis C Screening 1993 DTaP,Tdap,and Td Vaccines (1 - Tdap) 1994 Cologuard 2020 Colonoscopy 2020 Colorectal Cancer Screening 2020 Fecal Occult Blood Test 2020 Sigmoidoscopy 2020 COVID-19 Vaccine (4 - 2022-2 4 season) 2023 10/03/2021, 02/11/2021, 01/21/2021 Influenza Vaccine (FLU shot) (#1) 2023 GFR 07/31/2024 07/31/2023 Diabetes Screening 07/31/2026 07/31/2023, 07/31/2023 GARDASIL-HPV IMMUNIZATION SERIES Aged Out No longer eligible b ased on patient's age to complete this topic MENINGOCOCCAL (MENACTRA/MENVEO) Aged Out No longer eligible b ased on patient's age to complete this topic Pneumococcal Vaccine: Pediatrics (0 to 5 Years) and At-Risk Patients (6 to 64 Years) Aged Out No longer eligible b ased on patient's age to complete this topic documented as of this encounter Medical Devices Not on filedocumented as of this encounter Visit Diagnoses Diagnosis Hospital discharge follow-up- Primary Other follow-up examination documented in this encounter Advance Directives Latest Code Status on File Code Status Date Activated Date Inactivated Comments Full Code 07/30/2023 7:04 PM 07/31/2023 9:59 PM This order reflects the patients wishes and were consensually agreed upon. Question Answer Comments Discussion of Advance Directives occurred with: Patient Care Teams Caustic Purification Operator Relationship Specialty Start Date End Date Manuel Cobb III, MD [address] [place] [address] PCP - General Family Medicine 07/24/23 documented as of this encounter
--- OUTSIDE RECORDS SUMMARY | 2023-09-04 17:32 | External Medical Summary | Summary of Care ---
Author Name Unknown Organization [facility] Address [address] [facility] [place] [address] Phone [phone] Care Team Providers Care Steam Clothes Press Operator Name Role Phone Jordyn MILTON MD, John E Primary Care Provider [phone] Reason for Visit * Reason Onset Date Comments Hospital Follow-Up Hospital Follow-Up 08/07/2023 Encounter Details Date Type Department Care Team Description 08/07/2023 Office Visit Family Practice Charles Juárez [place] [address] [facility] [place] [address] Manuel Cobb III, MD [address] [facility] [place] [address] Primary hypertension*; History of coronary vasospasm; Hospital discharge follow-up; HTN, goal below 140/90 Allergies No known active allergiesdocumented as of this encounter (statuses as of 08/10/2023) Medications Medication Sig Dispensed Refills Start Date [...] as of this encounter (statuses as of 08/10/2023) Active Problems Problem Noted Date Marijuana smoker 07/31/2023 Anxiety 07/31/2023 HTN (hypertension) 07/31/2023 History of coronary vasospasm 07/31/2023 Chronic coronary microvascular dysfuncti on 07/31/2023 documented as of this encounter (statuses as of 08/10/2023) Resolved Problems Problem Noted Date Resolved Date CAD (coronary artery disease) 07/31/2023 NSTEMI (non-ST elevated myocardial infarction) 1 07/31/2023 documented as of this encounter (statuses as of 08/10/2023) Social History Tobacco Use Types Packs/Day Years Used Date Smoking Tobacco: Never Smokeless Tobacco: Never Tobacco Cessation:Counseling Given: Not Answered Alcohol Use Standard Drinks/Week Comments Yes 0 (1 standard drink = 0.6 oz pur e alcohol) Socially Sex Assigned at Date Recorded Not on file Job Start Date Occupation Industry Not on file Not on file Not on file documented as of this encounter Last Filed Vital Signs Vital Sign Reading Time Taken Comments Blood Pressure 121/83 08/07/2023 11:08 AM EDT ow n cuff Pulse 97 08/07/2023 11:07 AM EDT Temperature 36.4 C (97.5 F) 08/07/2023 10:54 AM E DT Respiratory Rate 16 08/07/2023 10:54 AM EDT Oxygen Saturation - - Inhaled Oxygen Concentration - - Weight 77.6 kg (171 lb) 08/07/2023 10:54 AM EDT Height - - Body Mass Index 26 07/30/2023 7:04 PM EDT documented in this encounter Progress Notes * Manuel Cobb III, MD - 08/07/2023 11:26 AM EDT Subjective: Lon Alvarado is a 48 year old male. Chief Complaint Patient presents with Hospital Follow-Up Hospital Follow-Up HPI: Hospital discharge follow-up initially seen evaluated at [facility] non STEMI with significant abnormalities on cardiac catheterization was transferred to [place] had been under a lot of stress at that point had repeat catheterization suggesting prior angiogram abnormalities were cardio vasospastic currently on amlodipine isosorbide has not taken any nitroglycerin walking about a mi every day has switch to diet reports mother diagnosed with Yap's esophagus PMH: Patient Active Problem List Diagnosis Code Marijuana smoker F12.90 Anxiety F41.9 HTN (hypertension) I10 History of coronary vasospasm Z86.79 Chronic coronary microvascular dysfunction I25.85 Current Outpatient Medications Medication Sig Dispense Refill amLODIPine Besylate 5 MG Oral Tablet (Norvasc) Take 1 Tablet by mouth in the morning. Do not start before August 01, 2023. 30 Tablet 11 Isosorbide Mononitrate ER 30 MG Oral Tablet Extended Release 24 Hour (Imdur) Take 1 Tablet by mouthin the morning. Do not start before August 01, 2023. 30 Tablet 11 Nitroglycerin 0.4 MG Sublingual Tablet Sublingual (Nitrostat) Place 1 Tablet under the tongue every5 minutes as needed for Pain, Chest. up to 3 doses in 15 minutes 75 Tablet 3 No current facility-administered medications for this visit. Review of patient's allergies indicates: No Known Allergies No past medical history on file. Past Surgical History: Procedure Laterality Date CORONARY ANGIOGRAPHY W/LEFT HEART CATH Right 07/31/2023 CORONARY ANGIOGRAPHY W/LEFT HEART CATH performed by Jeffy Stokes MD at [facility] [place] PROCEDURE NEC UT APPENDECTOMY 1984 Objective: The patient is a 48 year old male BP 121/83 Comment: own cuff | Pulse 97 | Temp 36.4 C (97.5 F) | Resp 16 | Wt 77.6 kg (171 lb) |BMI 26.00 kg/m | BSA 1.93 m General: alert, healthy, and no distress Eye Exam: PERRLA, extraocular movements intact, conjunctiva are pink and non- injected, sclera clear Oropharynx: no exudate, no erythema, lips, buccal mucosa, and tongue normal, and mucous membranes are moist Heart: regular rate & rhythm, no murmur, and no gallops Lungs: lungs clear to auscultation Extremities: no edema, no clubbing, no cyanosis ASSESSMENT: I10 Primary hypertension (primary encounter diagnosis) Z86.79 History of coronary vasospasm Z09 Hospital discharge follow-up I10 HTN, goal below 140/90 PLAN: You present meds will get flu vaccine at work call if problems comprehensive metabolic panel and lipids before next appointment plans to try increase gradually exercise further as able add resistancework to aerobic activity continue dash diet Follow up as scheduled 3 mo. Manuel Cobb III, MD * Violet Castillo RN - 08/07/2023 10:54 AM EDT Pt thinks he changed his lifestyle too fast and got panicky. Was misdiagnosed at [facility] and then was admitted to [place]. documented in this encounter Plan of Treatment Upcoming Encounters Date Type Specialty Care Team Description 11/07/2023 Office Visit Family Medicine Jordyn IMLTON, Manuel Dey MD 200 [facility], [place] [address] Health Maintenance Due Date Last Done Comments [...] as of this encounter Visit Diagnoses Diagnosis Primary hypertension- Primary Unspecified essential hypertension History of coronary vasospasm Personal history of other diseases of circulatory system Hospital discharge follow-up Other follow-up examination HTN, goal below 140/90 Unspecified essential hypertension documented in this encounter Advance Directives Latest Code Status on File Code Status Date Activated Date Inactivated Comments Full Code 07/30/2023 7:04 PM 07/31/2023 9:59 PM This order reflects the patients wishes and were consensually agreed upon. Question Answer Comments Discussion of Advance Directives occurred with: Patient Care Teams Steam Clothes Press Operator Relationship Specialty Start Date End Date Manuel Cobb III, MD [address] [place] [address], [place] [address] PCP - General Family Medicine 07/24/23 documented as of this encounter"
--- OUTSIDE RECORDS SUMMARY | 2023-09-04 17:32 | External Medical Summary | Summary of Care ---
Author Name Unknown Organization [facility] Address [address] [facility] [address] Phone [phone] Care Team Providers Care Geospatial Intelligence Analyst Name Role Phone Jordyn MILTON MD, John E Primary Care Provider [phone] Reason for Visit * Reason Onset Date Comments Letter Requests 08/08/2023 Encounter Details Date Type Department Care Team ([facility] st Contact Info) Description 08/08/2023 Telephone Family Practice [facility] 200 [facility] [place] [address] Manuel Cobb III, MD 200 [place] [address] Letter Requests Allergies No known active allergiesdocumented [...] MyG sent * Telephone Encounter - Eileen Nuñez LPN - 08/10/2023 2:44 PM EDT Left [...] you like letter faxed or picked up?: clam picker Fax number: n/a Number to be called when ready to be picked up: [phone] Date needed: 08/08/23 documented in this encounter Plan of Treatment Upcoming Encounters Date Type Department Care Team (Late st Contact Info) Description 11/07/2023 1:40 PM EST Office Visit Family Practice Charles Juárez [place] 200 [facility] [place] [address] Manuel Cobb III, MD 200 [facility] [place] [address] Health Maintenance Due Date Last Done Comments [...] Advance Directives occurred with: Patient Care Teams Geospatial Intelligence Analyst Relationship Specialty Start Date End Date Manuel Cobb III, MD 200 [place] [address] PCP - General Family Medicine 07/24/23 documented as of this encounter
--- OUTSIDE RECORDS SUMMARY | 2023-09-04 17:33 | External Medical Summary ---
Author Name Unknown Address Unknown Organization [id number]:[facility] [place] [address] [place] [address] Laboratory Report Ordering Provider Test Date Status SURY SANDHU 07/30/2023 19:53:00 Final Warfarin Therapy
INR: 2 .0-3.0 conventional anticoagulation
INR: 2.5- 3.5 high intensity anticoagulation Observation Date Value Abnormality Reference (Units ) Status PT 07/30/2023 19:53:00 13.2 11.6-15.2 (seconds) Final INR 07/30/2023 19:53:00 1.0 0.8-1.2 Final Performing Location [facility] [place] [address] [place] [address]
--- OUTSIDE RECORDS SUMMARY | 2023-09-04 17:33 | External Medical Summary ---
Author Name Unknown Address Unknown Organization [id number][place] [facility] [place] [address] [place] [address] Laboratory Report Ordering Provider Test Date Status SURY SANDHU 07/30/2023 20:58:00 Final Observation Date Value Abnormality Reference (Units ) Status Troponin T 07/30/2023 20:58:00 12 <=22 (ng/ L) Final Performing Location [facility] [place] [address] [place] [address]
--- OUTSIDE RECORDS SUMMARY | 2023-09-04 17:33 | External Medical Summary ---
Author Name Unknown Address Unknown Organization [id number]:[facility] [place] - [facility] [address] [place] [address] Laboratory Report Ordering Provider Test Date Status LUCI LOZOYA 07/31/2023 07:31:00 Final Observation Date Value Abnormality Reference (Units ) Status Heparin, unfractionated level 07/31/2023 07:31:00 0.48 Above high normal <0.10 (IU/mL) Final Unfractionated therapeutic r anges for Anti Xa activity:
For Cardiac/Neurologic treatment: 0.3 to 0.6 IU/mL.
For treatment of DVT or Pulmonary Embolism: 0.3 to 0.7 IU/mL. Performing Location [facility] [place] - [address] [place] [address]
--- OUTSIDE RECORDS SUMMARY | 2023-09-04 17:33 | External Medical Summary ---
Author Name Unknown Address Unknown Organization [id number]:[place] [facility] [place] [facility] [address] [facility] [address] [place] [address] Laboratory Report Ordering Provider Test Date Status SURY SANDHU 07/31/2023 06:15:00 Final Observation Date Value Abnormality Reference (Units ) Status WBC, Total 07/31/2023 06:15:00 9.05 4.00-10.80 (K/uL) Final RBC 07/31/2023 06:15:00 4.86 4.50-5.25 (M/uL) Final Hemoglobin 07/31/2023 06:15:00 14.5 14.0-16.8 (g/dL) Final HCT 07/31/2023 06:15:00 42.6 40.0-48.4 (%) Final MCV 07/31/2023 06:15:00 87.7 82.0-99.5 (fL) Final MCH 07/31/2023 06:15:00 29.8 27.0-34.0 (pg) Final MCHC 07/31/2023 06:15:00 34.0 32.0-36.0 (g/dL) Final RDW 07/31/2023 06:15:00 13.0 11.5-15.5 (%) Final Platelets 07/31/2023 06:15:00 214 140-400 (K/uL) Final MPV 07/31/2023 06:15:00 11.0 6.6-11.1 (fL) Final Nucleated erythrocytes/100 leukocytes [Ratio] in Blood by Automated count 07/31/2023 06:15:00 0 <=0 (/100 WBCs) Final Performing Location [facility] [facility] [place] [address] [place] [address]
--- OUTSIDE RECORDS SUMMARY | 2023-09-04 17:33 | External Medical Summary | Summary of Care ---
Author Name Unknown Organization [facility] Address [address] [place] [address] Phone [phone] Care Team Providers Care Scleroscope Tester Name Role Phone Jordyn MILTON MD, Manuel Dey Primary Care Provider [phone] Reason for Visit * Reason Onset Date Comments Advice 07/24/2023 Encounter Details Date Type Department Care Team Description 07/24/2023 Telephone Family Practice [facility] [place] 200 [place] [address] Manuel Cobb III, MD 200 [place] [address] Advice Allergies No known active allergiesdocumented as of this encounter (statuses as of 07/26/2023) Medications Medication Sig Dispensed Refills Start Date End Date Status amLODIPine Besy-Benazepril HCl 5-20 MG Oral Capsule (Lotrel) Take 1 Capsule by mouth in the morning. 30 Capsule 5 07/24/2023 Active documented as of this encounter (statuses as of 07/26/2023) Active Problems No known active problems documented as of this encounter (statuses as of 07/26/2023) Social History Tobacco Use Types Packs/Day Years [...] encounter Miscellaneous Notes * Telephone Encounter - Manuel Cobb III, MD - 07/25/2023 9:14 AM EDT Labs ordered fasting comp has sugar * Telephone Encounter - BIMAL Johnson - 07/24/2023 4:23 PM EDT Pt had appt and forgot to discuss diabetes and family history and pt would like to be screened. Please advise. documented in this encounter Plan of Treatment Upcoming Encounters Date Type Specialty Care Team Description 08/07/2023 Nurse Only Ancillary aMrquita, Nurse Joseph Umana [place] 200 [place] [address] 11/07/2023 Office Visit Family Medicine Manuel Cobb III, MD [address] [place] [address] Health Maintenance Due Date Last Done Comments Diabetes Screening 1975 Hepatitis B (1 of 3 - 3-dose series) 1975 Lipid Panel 1975 COVID-19 Vaccine (#1) 1975 Depression Screening 1987 HIV Screening 1990 Hepatitis C Screening 1993 DTaP,Tdap,and Td Vaccines (1 - Tdap) 1994 Cologuard 2020 Colonoscopy 2020 Colorectal Cancer Screening 2020 Fecal Occult Blood Test 2020 Sigmoidoscopy 2020 Influenza Vaccine (FLU shot) (#1) 2023 GARDASIL-HPV IMMUNIZATION SERIES Aged Out No longer eligible based on patient's age to complete this topic MENINGOCOCCAL (MENACTRA/MENVEO) Aged Out No longer eligible based on patient's age to complete this topic Pneumococcal Vaccine: Pediat rics (0 to 5 Years) and At-Risk Patients (6 to 64 Years) Aged Out No longer eligible b ased on patient's age to complete this topic documented as of this encounter Medical Devices Not on filedocumented as of this encounter Care Teams Scleroscope Tester Relationship Specialty Start Date End Date Manuel Cobb III, MD [address] [place] [address] PCP - General Family Medicine 07/24/23 documented as of this encounter
--- OUTSIDE RECORDS SUMMARY | 2023-09-04 17:33 | External Medical Summary ---
Author Name Unknown Address Unknown Organization [id number]:[facility] [place] [facility] [place] [address] Laboratory Report Ordering Provider Test Date Status EDSONDELFINOARON 07/30/2023 19:53:00 Final Observation Date Value Abnormality Reference (Units ) Status Heparin, unfractionated level 07/30/2023 19:53:00 0.30 Above high normal <0.10 (IU/mL) Final Unfractionated therapeutic r anges for Anti Xa activity:
For Cardiac/Neurologic treatment: 0.3 to 0.6 IU/mL.
For treatment of DVT or Pulmonary Embolism: 0.3 to 0.7 IU/mL. Performing Location [facility] [place] [address] [place] [address]
--- OUTSIDE RECORDS SUMMARY | 2023-09-04 17:33 | External Medical Summary ---
Author Name Unknown Address Unknown Organization [id number]:[facility] [place] - [facility] [address] [facility] [address] [place] [address] Laboratory Report Ordering Provider Test Date Status EDSONDELFINOARON 07/31/2023 01:54:00 Final Get Heparin, unfractionated (Xa) level 6 hours after start of infusion and 6 hours after each dose adjustment Observation Date Value Abnormality Reference (Units ) Status Heparin, unfractionated level 07/31/2023 01:54:00 0.49 Above high normal <0.10 (IU/mL) Final Unfractionated therapeutic r anges for Anti Xa activity:
For Cardiac/Neurologic treatment: 0.3 to 0.6 IU/mL.
For treatment of DVT or Pulmonary Embolism: 0.3 to 0.7 IU/mL. Performing Location [facility] [place] - [facility] [address] [place] [address]
--- OUTSIDE RECORDS SUMMARY | 2023-09-04 17:33 | External Medical Summary ---
Author Name Unknown Address Unknown Organization [id number]:[facility] [place] [address] [place] [address] Laboratory Report Ordering Provider Test Date Status SURY SANDHU 07/31/2023 06:15:00 Final Warfarin Therapy
INR: 2 .0-3.0 conventional anticoagulation
INR: 2.5- 3.5 high intensity anticoagulation Observation Date Value Abnormality Reference (Units ) Status PT 07/31/2023 06:15:00 13.6 11.6-15.2 (seconds) Final INR 07/31/2023 06:15:00 1.0 0.8-1.2 Final Performing Location [facility] [place] [address] [place] [address]
--- OUTSIDE RECORDS SUMMARY | 2023-09-04 17:33 | External Medical Summary | Summary of Care ---
Author Name Unknown Organization [facility] Address [address] [place] [address] Phone [phone] Care Team Providers Care Car Mechanic Name Role Phone Jordyn MILTON MD, Manuel Dey Primary Care Provider [phone] Reason for Visit * Auth/Cert Specialty Diagnoses / Procedures Referred By Mayela jett Referred To Contact Diagnoses CAD (coronary artery disease) CAD Referral ID Status Reason Start Date Expiration Date Visits Re quested Visits Authorized [id number] Encounter Details Date Type Department Care Team Description 07/31/2023 Hospital Encounter Cardiac Studies [address] [address] Allergies No known active allergiesdocumented as of this encounter (statuses as of 08/01/2023) Medications Medication Sig Dispensed Refills Start Date [...] as of this encounter (statuses as of 08/01/2023) Active Problems Problem Noted Date Marijuana smoker 07/31/2023 Anxiety 07/31/2023 HTN (hypertension) 07/31/2023 History of coronary vasospasm 07/31/2023 Chronic coronary microvascular dysfuncti on 07/31/2023 documented as of this encounter (statuses as of 08/01/2023) Resolved Problems Problem Noted Date Resolved Date CAD (coronary artery disease) 07/31/2023 NSTEMI (non-ST elevated myocardial infarction) 1 07/31/2023 documented as of this encounter (statuses as of 08/01/2023) Social History Tobacco Use Types Packs/Day Years Used Date Smoking Tobacco: Never Smokeless Tobacco: Never Alcohol Use Standard Drinks/Week Comments Yes 0 (1 standard drink = 0.6 oz pur e alcohol) Socially Sex Assigned at Date Recorded Not on file Job Start Date Occupation Industry Not on file Not on file Not on file documented as of this encounter Plan of Treatment Upcoming Encounters Date Type Specialty Care Team Description 08/07/2023 Nurse Only Ancillary [place], Nurse [place] 200 [facility] [place] [address] 08/07/2023 Office Visit Family Medicine Manuel Cobb III, MD 200 [facility] [place] [address] 11/07/2023 Office Visit Family Medicine Manuel Cobb III, MD 200 [place] [address] Health Maintenance Due Date Last Done Comments [...] Not on filedocumented as of this encounter Procedures Procedure Name Priority Date/Time Associated Diagnosis Comments ECHO, COMPLETE (2D), TRANS-THORACIC STAT 07/31/2023 12:50 PM EDT Chest pain, unspecified type documented in this encounter Results * ECHO, COMPLETE (2D), TRANS-THORACIC (07/31/2023 12:50 PM EDT) LEFT VENTRICULAR EJECTION FRACTION 55 % [facility] CARDIOLOGY 07/31/2023 10:5 5 AM EDT Lucie Isaac DO ECHOCARDIOLOGY [facility] CARDIOLOGY documented in this encounter Advance Directives Latest Code Status on File Code Status Date Activated Date Inactivated Comments Full Code 07/30/2023 7:04 PM 07/31/2023 9:59 PM This order reflects the patients wishes and were consensually agreed upon. Question Answer Comments Discussion of Advance Directives occurred with: Patient Care Teams Car Mechanic Relationship Specialty Start Date End Date Manuel Cobb III, MD 200 [facility] [place] [address] PCP - General Family Medicine 07/24/23 documented as of this encounter
--- OUTSIDE RECORDS SUMMARY | 2023-09-04 17:33 | External Medical Summary | Summary of Care ---
Author Name Unknown Organization [facility] Address [address] [place] [address] Phone [phone] Care Team Providers Care Internet Merchant Name Role Phone Jordyn MILTON MD, John E Primary Care Provider [phone] Reason for Visit * Reason Onset Date Comments Hospital Follow-Up 08/01/2023 Encounter Details Date Type Department Care Team Description 08/01/2023 Telephone Family Practice [facility] 200 [place] [address] Manuel Cobb III, MD 200 [place] [address] Hospital Follow-Up Allergies No known active allergiesdocumented as of [...] encounter Miscellaneous Notes * Telephone Encounter - Mirian Shannon RN - 08/01/2023 7:40 AM EDT Transitions of Care Note Reason for Referral:Recent Admission Phone visit for follow up: CARLY [place] [facility] [place]: [place]23 Discharged to: Home, Date: 07/31/23 Diagnosis driving hospitalization: NSTEMI No CARLY call indicated, patient admitted less than 24 hours. documented in this encounter Plan of Treatment Upcoming Encounters Date Type Specialty Care Team Description 08/07/2023 Nurse Only Ancillary Nurse Joseph Juárez [address] [place] [place] [address] 08/07/2023 Office Visit Family Medicine Manuel Cobb III, MD [address] [facility] [place] [address] 11/07/2023 Office Visit Family Medicine Manuel Cobb III, MD [address] [facility] [place] [address] Health Maintenance Due Date Last Done Comments [...] Not on filedocumented as of this encounter Advance Directives Latest Code Status on File Code Status Date Activated Date Inactivated Comments Full Code 07/30/2023 7:04 PM 07/31/2023 9:59 PM This order reflects the patients wishes and were consensually agreed upon. Question Answer Comments Discussion of Advance Directives occurred with: Patient Care Teams Internet Merchant Relationship Specialty Start Date End Date Manuel Cobb III, MD [address] [place] [address] PCP - General Family Medicine 07/24/23 documented as of this encounter
--- OUTSIDE RECORDS SUMMARY | 2023-09-04 17:33 | External Medical Summary ---
Author Name Unknown Address Unknown Organization K01:[facility] [place] [address] [facility] [address] [facility] [address] Laboratory Report Ordering Provider Test Date Status SURY SANDHU 07/31/2023 06:15:00 Final Observation Date Value Abnormality Reference (Units ) Status HbA1C 07/31/2023 06:15:00 5.6 4.0-5.6 (% ) Final The use of HbA1c to monitor glycemic status is based on normal hemoglobin and HbA composition. This test should not be used in patients with abnormal hemoglobin that affects the half life of the red blood cell or the in vivo glycation rates. Glucose, estimated average 07/31/2023 06:15:00 114 <126 (mg/dL) Final Performing Location [facility] [place] [address] [facility] [address]
--- OUTSIDE RECORDS SUMMARY | 2023-09-04 17:33 | External Medical Summary ---
Author Name Unknown Address Unknown Organization [id number]:LAB[facility]ATORY [facility] [place] [address] [place] [address] Laboratory Report Ordering Provider Test Date Status SURY SANDHU 07/30/2023 19:53:00 Final Anticoagulation may affect t esting. Refer to [employer] [facility] Test Catalog for a list of effects. Observation Date Value Abnormality Reference (Units ) Status aPTT panel - Platelet poor plasma 07/30/2023 19:53:00 58 Above high normal 21-38 (seconds) Final Performing Location LABORATORY [facility] [place] - [address] [place] [address]
--- OUTSIDE RECORDS SUMMARY | 2023-09-04 17:33 | External Medical Summary | Summary of Care ---
Author Name Unknown Organization [facility] Address [address] [place] [address] Phone [phone] Care Team Providers Care Health Evaluator Name Role Phone Jordyn MILTON MD, Manuel Dey Primary Care Provider [phone] Reason for Referral * Evaluate & Treat - Unlimited Visits (Within 30 days (routine)) - Pending Review Specialty Diagnoses / Procedures Referred By Contact Referred To Contact Cardiovascular Medicine / Cardiology Diagnoses History of coronary vasospasm Lucie Isaac DO [address] [place] [address] Referral ID Status Reason Start Date Expiration Date Visits Requested Visits Authorized [id number] Pending Review Specialty Services Required 3 [phone] Question Answer Referral Priority Within 30 days (routine) Where should this appointment be scheduled? [facility] To which of the following clinics are you referring your patient? General Cardiology Clinic Comments Post discharge follow-up for Coronary vasospasm. Schedule with Dr. Arenas at [facility]. Discharge Order Reason for Visit * Auth/Cert Specialty Diagnoses / Procedures Referred By Mayela jett Referred To Contact Diagnoses CAD (coronary artery disease) CAD Referral ID Status Reason Start Date Expiration Date Visits Re quested Visits Authorized [id number] [phone] Encounter Details Date Type Department Care Team Description 07/30/2023 - 07/31/2023 Hospital Encounter [facility], [facility] Advanced Medicine 8th Floor [address] [place] [address] Truong Ashley MD [address] [place] [address] Allergies No known active allergiesdocumented as [...] 15 minutes 75 Tablet 3 07/31/2023 Active amLODIPine Besy-Benazepril HCl 5-20 MG Oral Capsule (Lotrel) Take 1 Capsule by mouth in the morning. 30 Capsule 5 07/24/2023 3 Discontinued amLODIPine Besylate 5 MG Oral Tablet (Norvasc) Take 1 Tablet by mouth in the morning. 30 Tablet 11 07/31/2023 3 Discontinued(Refi ll) Isosorbide Mononitrate ER 30 MG Oral Tablet Extended Release 24 Hour (Imdur) Take 1 Tablet by mouth in the morning. 30 Tablet 11 07/31/2023 3 Discontinued(Refi ll) documented as of this encounter (statuses as [...] Sign Reading Time Taken Comments Blood Pressure 130/91 07/31/2023 3:30 PM EDT Pulse 74 07/31/2023 3:30 PM EDT Temperature 36.9 C (98.4 F) 07/31/2023 11:24 AM E DT Respiratory Rate 18 07/31/2023 3:30 PM EDT Oxygen Saturation 95% 07/31/2023 3:30 PM EDT Inhaled Oxygen Concentration - - Weight 77.3 kg (170 lb 8 oz) 07/31/2023 6:31 AM EDT Height 172.7 cm (5' 8") 07/30/2023 7:04 PM EDT Body Mass Index 25.92 07/30/2023 7:04 PM EDT documented in this encounter Discharge Summaries * Truong Ashley MD - 07/31/2023 3:18 PM EDT Images from the original note were not included. [address] [address] Admission Date: 07/30/2023 Discharge Date: 07/31/2023 To Do For Next Provider: Ensure follow-up with Cardiology in 1 month for coronary vasospasm DISCHARGE DIAGNOSES: Active Hospital Problems Diagnosis Marijuana smoker Anxiety HTN (hypertension) History of coronary vasospasm Resolved Hospital Problems Diagnosis Date Resolved *Principal Diagnosis - NSTEMI (non-ST elevated myocardial infarction) (HCC) 07/31/2023 CAD (coronary artery disease) 07/31/2023 Attending Provider: Truong Ashley MD CONDITION ON DISCHARGE: stable DISPOSITION ON DISCHARGE: home FOLLOW-UP: Future Appointments Appt Date/Time Provider Department 08/07/2023 10:30 AM Nurse [facility] 11/07/2023 1:40 PM Manuel Cobb III, MD Family [facility] MEDICATIONS ON DISCHARGE: MEDICATION UPDATES AT DISCHARGE START taking these medications INSTRUCTIONS amLODIPine 5 MG Tablet Commonly known as: Norvasc Start taking on: August 01, 2023 Take 1 Tablet by mouth in the morning. Do not start before August 01, 2023. isosorbide mononitrate SA 30 MG Tb24 Commonly known as: Imdur Start taking on: August 01, 2023 Take 1 Tablet by mouth in the morning. Do not start before August 01, 2023. Nitroglycerin 0.4 MG Subl Commonly known as: Nitrostat Place 1 Tablet under the tongue every 5 minutes as needed for Pain, Chest. up to 3 doses in 15 minutes STOP taking these medications amLODIPine-Benazepril 5-20 mg per cap Commonly known as: Lotrel ALLERGIES: Patient has no known allergies. INSTRUCTIONS: Activity: as tolerated Diet: heart healthy diet, 2 gram sodium diet Code status (this admission): Full Code Discussion of adv directives occurred with - adult: Patient [employer] patient: no ADMISSION HISTORY & PHYSICAL EXAM (focused): PRESENTING PROBLEM: chest pain HPI: 48 year old male with PMHx as stated: - HTN (Recently diagnosed on 07/24/23) - anxiety - Medical marijuana use - History of LSD use Patient presented as a transfer from [facility]. He initially went there on 07/28/23 for the evaluation of chest pain that started on 07/28/23 while he was resting and having cereal. He states that it was 7/10, indigestion like, not associated with nausea, vomiting or shortness for breath. It did not radiate anywhere, and he did not notice any aggravating or relieving factors. He did not take any medications for it at home called EMS and stated that the pain resolved in about 30 minutes. He denied any palpitations, lightheadedness or passing out episodes. Reports that he is pretty active at baseline, does not follow with doctors until recently when he went to get evaluated for a rash on his rightarm and was found to be hypertensive. He was started on amlodipine-benazepril combination. He does not take any other medications otherwise. He states that he had similar pain again in the evening when he was eating that relieved after a few minutes and he states that it was less intense. He then had another similar less intense chest pain episode in the morning today. A nitro patch was placed and he states that his symptoms have not recurred since then. Outside hospital course: He was found to have troponins 75-->197-->79 and EKG showing nonspecific ST changes. He was given aspirin 324 mg, started on aspirin 81 mg daily, Lopressor 12.5 twice daily which was then increased to 25, Crestor 20 daily, lisinopril 10 mg, Protonix 40 mg daily. A TTE was done which revealed EF 60-65%, mild concentric LVH and grade 1 diastolic dysfunction. He underwent a cardiac cath at [facility] which revealed severe obstructive CAD with 90% proximal LAD, diffusely diseased 1st and 2nd diagonal branch, long 50% from left circumflex. He was started on a heparin gtt and PRN Nitro. During my evaluation, patient was resting comfortably in bed and did not have any acute complaints.He states that he has been very active at baseline, is a traveller and was preparing to go to a music festival. He denied any shortness a breath, nausea, vomiting, diaphoresis. Denied any recent illness. He lives by himself and is able today care of his daily chores himself. He does not use any oxygen or cane/walker. Pertinent cardiac imaging: TTE - 07/30/23 Left heart cath - 07/30/23 Admission Vital Signs: BP: 108 mmHg/67 mmHg (07/31/23233) Pulse: 73 (07/31/23233) Temp: 36.83 C (07/31/23233) Resp: 20 (07/31/23233) SpO2: 94 % (07/31/23233) Admission Physical Exam: General, no acute distress, alert and conversant male HEENT - normocephalic, atraumatic Cardiovascular, RRR, no m/r/c, Respiratory, CTA B/L, no w/r/r, GI, soft, nontender, normo-active bowel sounds, , no suprapubic tenderness MSK, moving all 4 extremities, Neuro, no focal deficits, Skin, warm/dry, no peripheral edema Psych, appropriate mood and affect, HOSPITAL COURSE (focused): Lon Alvarado is a 48 year old male who was transferred from [facility] to [facility] cardiology for further evaluation of more technical stenting by interventional cardiology team. Multidisciplinary review by cardiology and CT surgery regarding patient's cath films from outside hospital yielded concern for possible vasospasm given his coronary vessels were diffusely "thin". He was taken to the laboratory animal caretaker for re-evaluation and had +nitroglycerin test confirming suspicion for coronary vasospasm. Patient had reported recent stressors and long-term medical marijuana use on admission which when combined possiblycould have been lifestyle triggers for him. He was counseled on discontinuing further marijuana useand abstaining from any other illicit drugs. He was stable for discharge on 07/31/2023 with the following medical management: Amlodipine, Imdur, and nitro prn and plans for cardiology follow-up. Operations & Procedures: Cardiac catheterization 07/31/2023 Normal coronary arteries by angiography Prior coronary angiogram abnormalities (from [facility]) were due to coronary vasospasm. Medical management for coronary vasospasm. Aggressive lifestyle and risk factor modification. TTE 07/31/23 The qualitative LV ejection fraction is 55-59% (normal). The left ventricular cavity size is normal. The LV wall thickness is borderline increased (concentric). There is no left ventricular mural thrombus. SELECTED RESULTS: Last recorded weight: Weight: 77.3 kg (170 lb 8 oz) (07/31/23 06) Laboratory: [facility] 07/31/23 Component Ref Range & Units 11:31 Amphetamine Negative Negative Benzodiazepines Negative Negative Cannabinoids Negative Positive Abnormal Cocaine Metabolite Negative Negative Fentanyl Negative Negative Hydrocodone / Hydromorphone Negative Negative Methadone Metabolite Negative Negative Morphine / Codeine Negative Negative Oxycodone / Oxymorphone Negative Negative CARDIAC: Troponin T (see below for last three most recent values): Lab Results Component Value Date/Time TROPT 12 07/30/2023 08:58 PM CHEMISTRY: BUN, Creatinine, GFR Estimated, Sodium, Potassium, Chloride, Carbon Dioxide, Glucose, Calcium (see below for most recent value): Lab Results Component Value Date/Time BUN 16 07/31/2023 06:15 AM CREAT 0.9 07/31/2023 06:15 AM NA 135 07/31/2023 06:15 AM POTASSIUM 3.8 07/31/2023 06:15 AM CL 100 07/31/2023 06:15 AM CO2 24 07/31/2023 06:15 AM CA 9.2 07/31/2023 06:15 AM BLOOD COUNT: WBC, Hgb, Platelets (see below for most recent value): Lab Results Component Value Date/Time WBC 9.05 07/31/2023 06:15 AM HGB 14.5 07/31/2023 06:15 AM PLT 214 07/31/2023 06:15 AM HEMOGLOBIN: Hgb (see below for last three most recent values): Lab Results Component Value Date/Time HGB 14.5 07/31/2023 06:15 AM HGB 15.1 07/30/2023 07:53 PM HEMOGLOBIN A1C: (see below for most recent value): Lab Results Component Value Date/Time HGBA1C 5.6 07/31/2023 06:15 AM Complications: none CONSULTS ORDERED: CARDIAC SURGERY CONSULT IP REFERRING PHYSICIAN: Ref: BELTRAN MOONEY[[id number]] [address] [place] [address] (office) [phone] (fax) PRIMARY CARE PROVIDER: PCP: Manuel Cobb III, MD [address] [place] [address] / [facility] [address] (office) [phone] (fax) Note: To contact a physician responsible for this patients hospital care, please call [employer] [phone]. Attending Attestation: I have discussed the patient's management with the medical trainee and agree with the note. Pleaserefer to the documented findings and plan of care. The patient's bedside service today consisted ofan evaluation. I was present and confirmed the findings of the history and exam. Ana Ashley MD 07/31/2023 10:31 PM documented in this encounter Discharge Instructions * Discharge Instr - AVS* Lucie Isaac DO - 07/31/2023 3:07 PM EDT Discharge Date: 07/31/[address] Ashley of the Department of Cardiology at [phone] during business hours for any questions or test results. For after-hours emergencies call [phone] and have your doctor paged. Scheduling services is available between the hours of 8:00 am and 9:00 pm by calling . For routine questions, your [facility] Cardiology Team prefers the use of [employer]. [employer] is an online internet tool to help you meet your health care needs quickly by providing a secure, confidential way to view your health records and communicate with your [facility] Cardiology Team. To sign up for [employer] go to [email or web address], "Click" [place] [employer] on the right side of the screen and complete the user registration information. The information below provides you with the instructions and the list of medications you need to betaking following discharge from the hospital. If you have any questions, please ask before leaving.Please carry this letter with you when you see your doctor in the clinic. If you have questions, you can reach us at the numbers above. Brief summary of your inpatient care: You were transferred to [facility] from [facility] due to concern that you were having a heart attack that needed more advanced stenting. Based on your images,we had cardiac surgery weigh in to see if you were a surgical candidate and they recommended repeatcatheterization with our interventional cardiology team. During your procedure, we found that you had something called coronary vasospasm after giving you medication that dilated your heart blood vessels. There were no heart blockages. Many things can trigger coronary vasospasm but in your case it was likely a combination of stress and your marijuana use. Please stop using marijuana right away and stay away from illicit drugs. You were stable for discharge on 07/31/2023. Your primary diagnosis at discharge was Coronary vasospasm Your doctors during this hospitalization included: Dr. Ashley of the Department of Cardiology Inpatient test results pending: None Operations & Procedures: Cardiac catheterization Complications: none applicable Advance Directive Documented: Advance Directive Does the Patient have an Advance Directive? No Diet: Carbohydrate-controlled diet, Heart healthy diet Activity: as tolerated Medications: START Amlodipine & Imdur-these are for your coronary vasospasm-this can also lower your blood pressure; inform your PCP if you have any symptoms from this medication Nitro as needed for chest pain STOP Amlodipine-Benazepril (this was replaced by the above medications) Please call your primary care physician (Manuel Cobb III, MD) for an appointment within 1 week(s).You have been referred to cardiology to be seen within the next month. Radial Artery Catheterization Instructions for Post Care Activity: Do not use the arm we used for your procedure today. Do not lift more than 10 lbs for 3 days with arm used for procedure. A responsible adult must be with the patient for 24 hours after your procedure. Rest today but you may resume your usual activity tomorrow. Do not drive, operate any appliances and/or machinery or sign legal documents for 24 hours due to the anesthesia. You may return to work in 24 hours. You may wash the wrist with soap and water and you may shower. Do not soak the wrist in water without a waterproof bandage until the small incision is healed. If you notice bleeding, increased swelling, tingling in the fingers or pain in your forearm that is not relieved by Tylenol, please seek medical attention. If you develop a fever over 101 degrees F you should contact your grain packer. It is normal to have a small amount of discomfort for up to one week following your procedure but this should continue to improve with time, not worsen. If you have any questions or are concerned with how your arm is healing, call the doctor who did your procedure at . Keep the puncture site covered with a dry bandage for 24 hours, then remove the bandage. You shouldreplace it every 24 hours or if it gets wet. This should be done until the puncture site has completely healed. Cardiovascular RISK FACTOR control YOUR RISK FACTOR TREATMENT GOALS: Controlling the factors that cause arteries to form blockages will reduce your chance of having new blockages. Work with your health care providers to control your risk factors. If you have trouble reaching these goals then ask your health care provider to work with you further until they are controlled. Diabetes - In diabetics, hemoglobin A1C is a measure of the average blood sugar over the past 3 months. The goal is less than 7.0. Your result is: 5.6 Hypertension - Goal is less than 120/80. Your blood pressure is 142/94. High cholesterol LDL cholesterol (bad cholesterol) - goal is less than 70 mg/dl. HDL cholesterol (good cholesterol) - goal is greater than 40 mg/dl in men and 50 mg/dl in women. Triglycerides (other blood fats that are especially elevated in diabetics and pre-diabetics) - goal is less than 150 mg/dl. Your Lipid Panel Results are: Results for orders placed or performed during the hospital encounter of 07/30/23 LIPID PANEL WITHOUT DIRECT LDL Result Value Ref Range Triglycerides 109 <=174 mg/dL Cholesterol 191 <200 mg/dL HDL Cholesterol 47 >39 mg/dL Non-HDL Cholesterol 144 <=159 mg/dL LDL Cholesterol 122 <=129 mg/dL Tobacco - Tobacco is poison to your arteries. It will cause blockages. Continuing to smoke tobacco may lead to heart attacks, strokes, or leg amputation. You should avoid tobacco. Your goal is to notsmoke at all. Talk with your primary care provider about counseling and medications to help you stop smoking. Exercise - The [place] [employer] recommends walking 30 minutes a day most days of the week; if you have to lose weight you should walk 60-90 minutes a day. Remember that if you develop chestpain, you should stop what you are doing. Do not continue to exercise if you have chest pain. See your special activity instructions above. [place] weight - Your BMI (a measure of ideal body weight) is Body mass index is 25.92 kg/m.. Your BMI should be less than 25. Your waist size also predicts risk of heart attack: a woman's waist should be less than 35 inches and a man's waist less than 40. Maintaining your ideal body weight will help your heart, reduce blood pressure, blood sugar, and cholesterol, improve or help prevent diabetes, and improve or help prevent congestive heart failure. documented in this encounter Progress Notes * Truong Ashley MD - 07/31/2023 6:15 AM EDT PROGRESS NOTE - Cardiology [facility] [address] Name: Lon Alvarado Location: [facility] H877/[id number] Date: 07/31/2023 Time: 6:16 AM SUBJECTIVE: Lon Alvarado is a 48 year old male with a history of hypertension, medical marijuana use, and history of LSD use, who presents as a transfer from [facility] with complaint of chest pain. Admission: Patient went to [facility] on 07/28/23 with complaint of chest pain, which he described as "burning" pain in the middle of his chest that occurred while he was eating cereal and washing dishes. Reported numbness/tingling in his left arm. At the time, the only other symptom he had was SOB. Chest pain resolved within 30 minutes. In the hospital, he had another episode of chest pain, and was given a nitro patch, which relieved his symptoms. Work up at [facility] revealed troponin 75 --> 197 --> 79. EKG did not reveal ST changes. He was given Aspirin 324 mg, started on 81 mg daily, Lopressor 12.5 twice daily which was increased to 25, Crestor 20 mg daily, Lisinopril 10 mg, Protonix 40 mg daily. TTE revealed EF 60-65% and no valvular disease. Underwent cardiac cath, which revealed severe obstructive CAD with 90% proximal LAD, diffusely diseased 1st and 2nd diagonal branch, long 50% from leftcircumflex. Of note, he reports a rash that appeared ~1 month ago bilaterally on both extremities. Rash worsenswhen exposed to sun/heat, but denies itching. Rash prompted him to see PCP, where he was found to be hypertensive and started on amlodipine-benazepril. Overnight: Patient was admitted This morning the patient was seen at bedside. He is overall doing well. Denies chest pain or SOB. Denies fever, chills, nausea, vomiting, abdominal pain. OBJECTIVE: Most Recent Vital Signs: BP: 108 mmHg/67 mmHg (07/31/23233) Pulse: 73 (07/31/23233) Temp: 36.83 C (07/31/23233) Resp: 20 (07/31/23233) SpO2: 94 % (07/31/23233) Vital Signs Last 24 Hours: Systolic BP: Most Recent Systolic BP Av.3 mmHg Min: 108 mmHg Max: 124 mmHg Temperature: Most Recent Temperature Av.7 C Min: 36.56 C Max: 36.83 C Pulse: Pulse Av.7 Min: 67 Max: 75 Respirations: Resp Av.7 Min: 18 Max: 20 SpO2: SpO2 Av.3 % Min: 94 % Max: 98 % Physical Exam: Constitutional: no acute distress, patient lying comfortably in bed CV: normal heart sounds, normal rate, normal rhythm Chest: normal respiratory effort, breath sounds normal Abdomen: soft, no tenderness Extremities: no edema, no cyanosis, no tenderness to palpation or ROM Skin: warm, dry, intact Neuro: alert, oriented to person, place, and time LABS: Labs reviewed as indicated below: Troponin: Lab results within last 7 days (see chart for full results) Units 07/30/23 2058 Troponin T, High Sensitivity ng/L 12 CBC: Lab results within last 7 days (see chart for full results) Units 07/31/23 0615 07/30/23 1953 HGB g/dL 14.5 15.1 HCT % 42.6 45.1 WBC K/uL 9.05 8.57 PLT K/uL 214 242 BMP: Lab results within last 7 days (see chart for full results) Units 07/31/23 0615 Sodium mmol/L 135 Potassium mmol/L 3.8 Chloride mmol/L 100 CO2 mmol/L 24 BUN mg/dL 16 Creatinine mg/dL 0.9 Lipid Panel Results: Results for orders placed or performed during the hospital encounter of 07/30/23 LIPID PANEL WITHOUT DIRECT LDL Result Value Ref Range Triglycerides 109 <=174 mg/dL Cholesterol 191 <200 mg/dL HDL Cholesterol 47 >39 mg/dL Non-HDL Cholesterol 144 <=159 mg/dL LDL Cholesterol 122 <=129 mg/dL Hemoglobin A1c - 5.6 IMAGING: TTE: 07/30/23 - [facility] Interpretation Summary: - The left ventricle is normal in size - There is mild concentric left ventricular hypertrophy - The left ventricular wall motion is normal - Ejection fraction = 60-65% - There is not valvular disease - Grade I diastolic dysfunction (abnormal relaxation pattern) Left heart cath: 07/30/23 - [facility] Summary of Findings: - Small caliber coronaries with very narrow proximal left coronary anatomy including left main leftanterior descending and left circumflex - Severe obstructive coronary disease with 99% proximal left anterior descending, diffusely diseased first and second diagonal branch, long 50% proximal left circumflex IMPRESSION and PLAN: Principal Problem: NSTEMI (non-ST elevated myocardial infarction) (HCC) POA: Yes Active Problems: CAD (coronary artery disease) POA: Yes Marijuana smoker POA: Yes Anxiety POA: Yes HTN (hypertension) POA: Unknown POA = Present On Admission Lon Alvarado is a 48 year old male with a history of hypertension, medical marijuana use, and history of LSD use, who initially presented to [facility] with complaint of chest pain, admitted for NSTEMI, currently admitted to [facility] cardiology service for severe obstructive CAD. NSTEMI Severe obstructive CAD (LAD 90%) Hypertension Marijuana Use Patient is hemodynamically stable. Denies SOB or chest pain this morning. Given patient's symptoms of radiating chest pain at rest in the setting of troponin leak, concern for CAD at [facility] which prompted left heart catheterization on 07/30/23 which revealed severe obstructive coronary disease with 99% proximal left anterior descending with diffusely diseased first and second diagonal branches. Patient's risk factors for CAD include hypertension and family history - dad had CABG at age 45, T2DM, and mother has hypertension. Given these findings, cardiothoracic surgery consulted to determine if patient's lesions are more amenable to intervention with CABG vs PCI. Plan: - CT surgery consulted. Appreciate recommendations. - Medications: Continue Aspirin 81 mg daily Continue Heparin ggt Continue Lipitor 80 mg daily Holding lopressor 25 mg BID given patient sinus bradycardia - EKG - Urine Toxicology Screen given early onset MD The patient was seen and discussed with MD Fatuma Espinoza, Medical Student Attending Attestation: I have discussed the patient's management with the medical trainee and agree with the note. Please refer to the documented findings and plan of care. The patient's bedside service today consisted of an evaluation. I was present and confirmed the findings of the history and exam. Ana Ashley MD 07/31/2023 10:29 PM documented in this encounter H&P Notes * Truong Ashley MD - 07/30/2023 6:03 PM EDT Images from the original note were not included. GENERAL HISTORY & PHYSICAL EXAMINATION - Cardiology [facility] [address] Name: Lon Alvarado [place] [facility] H877/A Date: 07/30/2023 Time: 6:03 PM PRESENTING PROBLEM: chest pain HPI: 48 year old male with PMHx as stated: - HTN (Recently diagnosed on 07/24/23) - anxiety - Medical marijuana use - History of LSD use Patient presented as a transfer from [facility]. He initially went there on 07/28/23 for the evaluation of chest pain that started on 07/28/23 while he was resting and having cereal. He states that it was 7/10, indigestion like, not associated with nausea, vomiting or shortness for breath. It did not radiate anywhere, and he did not notice any aggravating or relieving factors. He did not take any medications for it at home called EMS and stated that the pain resolved in about 30 minutes. He denied any palpitations, lightheadedness or passing out episodes. Reports that he is pretty active at baseline, does not follow with doctors until recently when he went to get evaluated for a rash on his rightarm and was found to be hypertensive. He was started on amlodipine-benazepril combination. He does not take any other medications otherwise. He states that he had similar pain again in the evening when he was eating that relieved after a few minutes and he states that it was less intense. He then had another similar less intense chest pain episode in the morning today. A nitro patch was placed and he states that his symptoms have not recurred since then. Outside hospital course: He was found to have troponins 75-->197-->79 and EKG showing nonspecific ST changes. He was given aspirin 324 mg, started on aspirin 81 mg daily, Lopressor 12.5 twice daily which was then increased to 25, Crestor 20 daily, lisinopril 10 mg, Protonix 40 mg daily. A TTE was done which revealed EF 60-65%, mild concentric LVH and grade 1 diastolic dysfunction. He underwent a cardiac cath at [facility] which revealed severe obstructive CAD with 90% proximal LAD, diffusely diseased 1st and 2nd diagonal branch, long 50% from left circumflex. He was started on a heparin gtt and PRN Nitro. During my evaluation, patient was resting comfortably in bed and did not have any acute complaints.He states that he has been very active at baseline, is a traveller and was preparing to go to a music festival. He denied any shortness a breath, nausea, vomiting, diaphoresis. Denied any recent illness. He lives by himself and is able today care of his daily chores himself. He does not use any oxygen or cane/walker. Pertinent cardiac imaging: TTE - 07/30/23 Left heart cath - 07/30/23 PAST MEDICAL HISTORY: No past medical history on file. PAST SURGICAL HISTORY: Past Surgical History: Procedure Laterality Date DENTAL SURGERY PROCEDURE NEC LA APPENDECTOMY 1985 FAMILY HISTORY: Family History Problem Relation Age of Onset Hypertension Mother Heart attack Father BYPASS Drug abuse Brother od Alcohol and Other Disorders Associated Grandfather (Maternal) SOCIAL HISTORY: Social History Tobacco Use Smoking status: Never Smokeless tobacco: Never Substance Use Topics Alcohol use: Yes Comment: Socially Drug use: Yes Types: Marijuana Comment: Has medical marijuana card. CURRENT HOSPITAL MEDICATIONS: Note that completed medications (per MAR) continue to display for 24 hours. Ordered medications to be given in the future also display. Current Facility-Administered Medications Medication Dose Route Frequency Provider aspirin chew tab 81 mg 81 mg Oral Daily(AM) Ibrahima Millan MD atorvaSTATin (Lipitor) tab 80 mg 80 mg Oral Q 1700 Ibrahima Millan MD hEParin 1000 UNIT/ML inj 1,100 Units 15 Units/kg (Adjusted) IV Push PRN Ibrahima Millan MD hEParin 1000 UNIT/ML inj 2,200 Units 30 Units/kg (Adjusted) IV Push PRN Ibrahima Millan MD hEParin 25,000 units in 250 mL (Xa-Cardiac) infusion 0-30 Units/kg/hr (Adjusted) Intravenous Titrate Ibrahima Millan MD Metoprolol Tartrate (Lopressor) tab 25 mg 25 mg Oral BID(AM/PM) Ibrahima Millan MD ALLERGIES: Patient has no known allergies. ROS: Review of systems is negative for all other systems except those mentioned above in the HPI PHYSICAL EXAMINATION: Most Recent Vital Signs: BP: 108 mmHg/67 mmHg (07/31/23233) Pulse: 73 (07/31/23233) Temp: 36.83 C (07/31/23233) Resp: 20 (07/31/23233) SpO2: 94 % (07/31/23233) Physical Exam: General, no acute distress, alert and conversant male HEENT - normocephalic, atraumatic Cardiovascular, RRR, no m/r/c, Respiratory, CTA B/L, no w/r/r, GI, soft, nontender, normo-active bowel sounds, , no suprapubic tenderness MSK, moving all 4 extremities, Neuro, no focal deficits, Skin, warm/dry, no peripheral edema Psych, appropriate mood and affect, Lines/Tubes, LABS: Labs reviewed as indicated below: Troponin 75-->197-->70 Sodium 138 Potassium 3.8 Creatinine 0.88 Magnesium 2 Hemoglobin 15.1 WBC 0.5 Platelet 242 A1C 5.7% CARDIAC THERAPY: Beta blockers: yes Aspirin: yes Statin: yes IMPRESSION and PLAN: Principal Problem: NSTEMI (non-ST elevated myocardial infarction) (HCC) POA: Yes Active Problems: CAD (coronary artery disease) POA: Yes Marijuana smoker POA: Yes Anxiety POA: Yes HTN (hypertension) POA: Unknown POA = Present On Admission 48-year-old male with past medical history significant for hypertension, medical marijuana use anxiety presents with evaluation burning chest pain setting of elevated troponins, found to severe obstructive CAD affecting the proximal LAD and left circumflex transferred from [facility] for further intervention with PCI and possibly CABG if the lesion is not amenable to PCI. NSTEMI Severe obstructive CAD (LAD 90%) Hypertension Marijuana use -start heparin drip -start aspirin 81 mg daily -start Lipitor 80 mg [id number] statin -start Lopressor 25 twice daily -TTE obtained at [facility] -will obtain cardiac catheterization images from [facility] to help determine whether the patient should will undergo a PCI here DVT ppx: Heparin gtt Diet: NPO after 2400 except meds Bowel Regimen: None Respiratory: Room air Telemetry: Yes Code Status: Full Code Patient is being admitted for Heart Failure: no Patient was discussed with Dr. Valdez, rn cardiology and will be seen by Dr. Ashley, attending physician in the morning. Attending Attestation: I have discussed the patient's management with the medical trainee and agree with the note. Please refer to the documented findings and plan of care. The patient's bedside service today consisted of an evaluation. I was present and confirmed the findings of the history and exam. Ana Ashley MD 07/31/2023 10:23 PM documented in this encounter Consult Notes * Ruperto Browning MD - 07/31/2023 9:56 AM EDTAssociated Order(s): CARDIAC SURGERY CONSULT IP CONSULT - CARDIAC SURGERY [facility] [address] Name: Lon Alvardao [place]: [facility] H877/A Date: 07/31/2023 Time: 9:57 AM REFERRING PHYSICIAN: Beltran Mooney MD PCP: Manuel Cobb III, MD GLASS EMBOSSER: none Preference for return visit: [facility] REQUESTING SERVICE: Cardiology REASON FOR CONSULT: MVCAD, NSTEMI HPI: Lon Alvarado is a 48 year old male with PMH significant for newly diagnosed htn and medical marijuana. He presented to [facility] on 07/28 with c/o of chest pain. He stated that pain occurred while eating a bowl of cereal. He denied any associated SOB, palpitations, N/V, diaphoresis, or syncope. He called EMS and was taken to ED. Pain resolved in approximately 30 min. He described the pain as indigestion and did not radiate to jaw or arm. Pain returned on two separate occasions while in the hospital. A nitro patch was placed and pain has not returned. Troponins were elevated on admission and EKG showed nonspecific ST changes. TTE showed normal EF and no valvular disease. Cardiac cath showed a90% proximal LAD along with diffusely disease D1 and D2. He was transferred to [facility] [place] PCI vs CABG. Patient has history of chest pain/angina: Yes, location - substernal, radiation - none Patient has history of SOB/OLIVAREZ: No Patient has syncope/presyncope: No Presentation associated with endocarditis/bacteremia: No Patient has PMH of:HTN Placer Heart Failure Classification: Class II (Mild) ALLERGIES: Patient has no known allergies. PAST MEDICAL HISTORY: No past medical history on file. PAST SURGICAL HISTORY: Past Surgical History: Procedure Laterality Date DENTAL SURGERY PROCEDURE NEC LA APPENDECTOMY 1985 Hx of vein harvest or stripping?: no SOCIAL HISTORY: Drug Use: never Social History Tobacco Use Smoking status: Never Smokeless tobacco: Never Substance Use Topics Alcohol use: Yes Comment: Socially Drug use: Yes Types: Marijuana Comment: Has medical marijuana card. FAMILY HISTORY: Family History Problem Relation Age of Onset Hypertension Mother Heart attack Father BYPASS Drug abuse Brother od Alcohol and Other Disorders Associated Grandfather (Maternal) Family History of Premature CAD (Less than 55 year old male relative or less than 65 year old female relatives with history of angina, acute MD, sudden cardiac without obvious cause, CABG surgery, or PCI.): no REVIEW OF SYSTEMS: Constitutional: denies fever, denies shaking chills Eyes: denies double vision , denies blurred vision Ear, nose and throat: denies trouble swallowing, denies epistaxis Cardiac: see HPI Vascular: no claudication Respiratory: denies shortness of breath, denies dyspnea on exertion (OLIVAREZ) Gastrointestinal: denies nausea, denies vomiting, denies abdominal pain Genitourinary: denies dysuria Musculoskeletal: denies joint pain Psychiatric: denies depression, denies anxiety Skin: denies rash Neurologic: denies syncope Endocrine: denies constant thirst, denies constant hunger, denies constant urinating Hematologic / Lymphatic: Previous Transfusion?: no, denies blood clotting problems Immunologic: denies exposure to AIDS, denies exposure to hepatitis, denies exposure to TB CARDIOTHORACIC COMPLETE PHYSICAL EXAM: Most Recent Vital Signs: BP: 150 mmHg/93 mmHg (07/31/23749) Pulse: 77 (07/31/23749) Temp: 36.72 C (07/31/23749) Resp: 18 (07/31/23749) SpO2: 98 % (07/31/23749) PHYSICAL EXAM: General: no acute distress Head: normocephalic, no masses, lesions, tenderness or abnormalities Eyes: conjunctiva are pink and non-injected, sclera clear Ears: external ears normal Nose: normal, no epistaxis Neck: supple, no adenopathy, no bruits, thyroid normal size, non-tender, without nodularity, normaljugular venous pulse, no hepatojugular reflux Chest: normal shape and normal respiratory effort Lungs: lungs clear to auscultation Cardiac Exam: regular rate & rhythm no murmurs gallops or rubs - normal S1, normal S2 Pulses: The following pulses are normal: carotids and radials Abdomen: abdomen soft, non-tender, no abnormal masses, and no hepatosplenomegaly Extremities: no edema and no cyanosis Neuro: grossly normal exam Veins GSV appears adequate bilaterally Allens Test: Good collateral flow from ulnar artery in L hand LABS/STUDIES: Cardiac Cath severe obstructive CAD with 90% proximal LAD, diffusely diseased 1st and 2nd diagonal branch, long 50% from left circumflex TTE EF 60-65%, mild concentric LVH and grade 1 diastolic dysfunction. Society of Thoracic Surgeons (STS) Risk Score: STS site Procedure Type: Isolated CABG Perioperative Outcome Estimate % Operative Mortality 0.315% Morbidity & Mortality 3.02% Stroke 0.551% Renal Failure 0.278% Reoperation 1.62% Prolonged Ventilation 1.76% Deep Sternal Wound Infection 0.131% Long Hospital Stay (>14 days) 1.09% Short Hospital Stay (<6 days)* 80.5% IMPRESSION: Multivessel CAD PLAN: Discuss with Dr. Browning 90% proximal LAD lesion Diffuse diag disease however extremely small vessels Patient strongly prefers PCI. Will hold off on placing any orders until we discuss with interventional team to see if PCI is an option Continue hep gtt Patient seen and studies reviewed. Lon Alvarado is a 48 year-old male with newly diagnosed hypertension who experienced his 1st episode of substernal chest pain prompting his presentation to the emergency room. Troponins were elevated. Subsequent coronary angiogram revealed a long proximal 90% left anterior descending stenosis. There was moderate disease in the proximal circumflex. Distal vessels were small in caliber. Right coronary was free of disease. Echocardiogram revealed preserved ventricular function no valve disease. Wehave been asked to see him in consideration for surgical revascularization. Lon has significant single-vessel disease involving the proximal left anterior descending. It jm fairly long lesion however it is proximal and may be amenable to PCI. The small caliber of the vessels may favor surgery however there may be some element of spasm in the appearance of the coronaryarteries. I discussed coronary artery bypass surgery with Lon along with its risks as estimated by the ST S, potential benefits and possible alternative therapies. He understands and agrees to proceed with surgery if PCI is not an option. We will await final decision from Interventional Cardiology. documented in this encounter Miscellaneous Notes * Progress Notes - Non-Billable - Lucie Isaac DO - 07/31/2023 3:22 PM EDT Post Cardiac Catheterization Check S: Patient has no acute complaints. Denies any pain at right radial site. Denies pain, numbness, or tingling distal to access site. Denies chest pain, palpitations, SOB. O: BP 172/104 | Pulse 72 | Temp 36.9 C (98.4 F) (Oral) | Resp 18 | Ht 1.727 m (5' 8") | Wt 77.3 kg(170 lb 8 oz) | SpO2 95% | BMI 25.92 kg/m | BSA 1.93 m No acute distress, vitals stable Regular rate and rhythm; no murmurs, rubs, or gallops Chest clear to auscultation bilaterally right radial site c/d/i, good distal perfusion and pulses A/P: Cath site with no acute issues Stable for discharge * Ancillary Progress Note - SIDDHARTHA Gaona - 07/31/2023 3:04 PM EDT [address] [address] Ancillary Progress Note Patient Name: Lon Alvarado Date: 07/31/2023 Patient will be escorted to Cardiac Recovery Suite. We performed a diagnostic cardiac catheterization procedure on this patient. The right radial artery was used for access with a 6 Romanian sheath. A Radial Band was applied at 14 mL. of air to close the site. There is no hematoma and no ooze from the cath site noted. No sterile dressing applied to site. Radial band applied. Distal pulses were palpated and instructions to patient were given. There were no complications during the case. Please seethe MAR for the medications that were given. See Cath Procedure Log for patient vitals during the case. * Ancillary Progress Note - DIXIE Mills - 07/31/2023 1:42 PM EDT CARE MANAGEMENT - ADULT TRANSITION NOTE [address] [address] Name: Lon Alvarado [place] [facility] H877/A Date: 07/31/2023 Time: 1:43 PM Risk Stratification Risk Stratification Readmission Risk Score: 8.89 (07/31/23 1200) AM-PAC Score With Stairs : 24 (07/30/231999) Caregiver Information Patient Contacts None on File Transition of Care Checklist Transition of Care Checklist (aka Readmission Risk Score) Readmission Risk Score: 8.89 (07/31/23 1200) Narrative: SW attempted x3 to see Pt. Pt had someone in room each time. SW to attempt to complete 515 as able. SW will continue to follow for evolving needs and support. Anticipated Transportation at Discharge: TBD Patient/Family Expectations: TBD Transition Planning Additional Considerations: N/A Care Management will continue to monitor and assist with discharge planning needs * Ancillary Progress Note - Anuja Weeks RDN - 07/31/2023 9:35 AM EDT CLINICAL NUTRITION ADULT RISK ASSESSMENT [address] [address] Name: Lon Alvarado [place] [facility] H877/ Date: 07/31/2023 Time: 9:35 AM How patient was identified (select 2): Medical record number and Name Lon Alvarado is a 48 year old male being assessed for clinical nutrition risk related to reduced dietary intake and significant unintentional weight loss Primary diagnosis: chest pain Other pertinent information: Patient reports that normally he has good appetite and eats well priorto admission. Currently starving and can't wait to have his meal. Denies N/V and abdominal discomfort. No chewing/swallowing difficulty reported. No significant wt loss reported. No recent wt available in the chart. Currently NPO, Advance diet, when medically feasible. Anthropometrics Measurements Admission weight (for dietitians): 77.3 kg Height: 172.7 cm (5' 8") (07/30/231903) Weight: 77.3 kg (170 lb 8 oz) (07/31/23630) BMI: 26.14 (07/30/231903) Usual Body Weight or EDW for Dialysis Patients: no recent wt in EMR. 79-81 kg per pt Diet: NPO Previously followed diet: Regular Food Allergies/Intolerances: None Pertinent medications/vitamins/minerals/supplements: Potassium chloride, RISK FACTORS: Adult Energy Intake: No significant decrease Interpretation of Weight Change: No recent weight/weight history available Skin: Intact NUTRITION RISK CATEGORY: Nutrition Risk Category: Low/Moderate (0-1 factors) Clinical Nutrition Recommendations: Diet: Advance diet when clinically feasible NUTRITION INTERVENTION/PLAN: Continue to monitor NPO/clear liquid status Will follow and adjust nutritional plan as medical condition requires. Please contact for change(s)in patient condition requiring earlier intervention. Anuja Weeks MS, RDN, LDN Clinical Dietitian [facility] [place] text * Medical Necessity - Laine Montgomery RN - 07/31/2023 8:32 AM EDT AdmissionCare Guideline: Cardiology, Inpatient Based on the indications selected for the patient, the bed status of Admit to Inpatient was determined to be MET The following indications were selected as present at the time of evaluation of the patient: - Cardiac injury (eg, contusion) requiring monitoring or treatment beyond scope of observation care(eg, longer-term monitoring for arrhythmia, effusion) Additional Information: burning chest pain setting of elevated troponins, found to severe obstructive CAD affecting the proximal LAD and left circumflex transferred from [facility] for further intervention with PCI and possibly CABG if the lesion is not amenable to PCI. NSTEMI Severe obstructive CAD (LAD 90%) heparin drip AdmissionCare documentation entered by: Laine Montgomery [facility] [employer], 26th edition, Copyright 2021 [facility] [employer] All Rights Reserved. [id number]:00 Solely for purpose of utilization review and payment; not a diagnostic tool documented in this encounter Plan of Treatment Upcoming Encounters Date Type Specialty Care Team Description 08/07/2023 Nurse Only Ancillary Nurse Joseph Juárez [address] [place] [id number] 08/07/2023 Office Visit Family Medicine Jordyn III, Manuel Dey MD [address] [place] [id number] 11/07/2023 Office Visit Family Medicine Jordyn III, Manuel Dey MD [address] [place] [address] Pending Results Name Type Priority Associated Diagnoses Date /Time THC METABOLITE, URINE CONFIRMATION Lab STAT 07/31/2023 11:31 AM EDT Scheduled Orders Name Type Priority Associated Diagnoses Orde r Schedule EKG EKG STAT ACS (acute coronary syndrome) (HCC) One Time for 1 Occurrences starting 07/31/2023 until 07/31/2023 THC METABOLITE, URINE CONFIRMATION Lab STAT One Time for 1 Occurrences starting 07/31/2023 until 07/31/2023 Scheduled Referrals Name Type Priority Associated Diagnoses Orde r Schedule CARDIOLOGY REFERRAL OP Referral Within 30 days (routine) History of coronary vasospasm Ordered: 07/31/2023 Health Maintenance Due Date Last Done Comments [...] 12:50 PM EDT Chest pain, unspecified type TOXICOLOGY, URINESCREEN W/ CONFIRMATION STAT 07/31/2023 11:31 AM EDT HEPARIN, UNFRACTIONATED Routine 07/31/20 7:31 AM EDT HEMOGLOBIN A1C Routine 07/31/2023 6:15 AM EDT BASIC METABOLIC PANEL Routine 07/31/2023 6:15 AM EDT PT INR Routine 07/31/2023 6:15 AM EDT CBC Routine 07/31/2023 6:15 AM EDT LIPID PANEL WITHOUT DIRECT LDL Routine 07/31/2023 6:15 AM EDT HEPARIN, UNFRACTIONATED STAT 07/31/20 1:54 AM EDT CARDIAC CATHETERIZATION REPORT Routine 07/31/2023 TROPONIN T, HIGH SENSITIVITY Routine 07/30/2023 8:58 PM EDT HEPARIN, UNFRACTIONATED STAT 07/30/20 7:53 PM EDT PT INR STAT 07/30/2023 7:53 PM EDT APTT STAT 07/30/2023 7:53 PM EDT CBC STAT 07/30/2023 7:53 PM EDT documented in this encounter Results * ECHO, COMPLETE (2D), TRANS-THORACIC (07/31/2023 12:50 PM EDT) [facility] Signature LEFT VENTRICULAR EJECTION FRACTION 55 % [facility] CARDIOLOGY 07/31/2023 10:5 5 AM EDT [employer] [facility] DO ECHOCARDIOLOGY [facility] CARDIOLOGY * (ABNORMAL) TOXICOLOGY, URINESCREEN W/ CONFIRMATION (07/31/2023 11:31 AM EDT) Amphetamine Negative Negative 07/31/2023 11:58 AM EDT [facility] Benzodiazepines Negative Negative 11:58 AM EDT LABORATORY [facility] Cannabinoids Positive(A) Negative 07/31/2023 11:58 AM EDT [facility] Cocaine Metabolite Negative Negative 2022 11:58 AM EDT [facility] Fentanyl Negative Negative 07/31/2023 11:58 AM EDT [facility] Hydrocodone / Hydromorphone Negative Negative 07/31/2023 11:58 AM EDT LABORATORY [facility] Methadone Metabolite Negative Negative 07/31/2023 11:58 AM EDT [facility] Morphine / Codeine Negative Negative 2022 11:58 AM EDT [facility] Oxycodone / Oxymorphone Negative Negative 07/31/2023 11:58 AM EDT LAB[facility]ATORY [facility] Urine Non-blood Collection / Unknown 07/31/2023 11:31 AM EDT 07/31/2023 11:42 AM EDT Narrative [facility] - 07/31/2023 11:58 AM EDT Cutoff Concentrations: Drug Level Amphetamines 500 ng/mL Benzodiazepines 100 ng/mL Cannabinoids 50 ng/mL Cocaine Metabolite 150 ng/mL Fentanyl 1 ng/mL Hydrocodone / Hydromorphone 300 ng/mL Methadone Metabolite 100 ng/mL Morphine / Codeine 300 ng/mL Oxycodone / Oxymorphone 100 ng/mL Screening results are presumptive and can only be used for medical purposes. Positive screening results are reflexed to confirmatory testing. DonnieMango-Matepaulino MuhammadWannafunalice [facility] URINE ORDER RAJESH [facility] [address] [place] [address] * (ABNORMAL) HEPARIN, UNFRACTIONATED (07/31/2023 7:31 AM EDT) Pathologist [facility] Heparin, Unfractionated 0.48(H) <0.10 IU/mL 07/31/2023 8:15 AM EDT LABORATORY [facility] Comment: Unfractionated therapeutic ranges for Anti Xa activity: For Cardiac/Neurologic treatment: 0.3 to 0.6 IU/mL. For treatment of DVT or Pulmonary Embolism: 0.3 to 0.7 IU/mL. Blood Venous blood specimen / Unknown Venipuncture / Unknown 07/31/2023 7:31 AM EDT 07/31/2023 7:57 AM EDT Truong Ashley MD LAB BLOOD [facility] [address] [id number] * PT INR (07/31/2023 6:15 AM EDT) [facility] Prothrombin Time 13.6 11.6 - 15.2 seconds 07/31/2023 6:57 AM EDT LABORATORY [facility] INR 1.0 0.8 - 1.2 07/31/2023 6:57 AM EDT LABORATORY [facility] Blood Venous blood specimen / Unknown Venipuncture / Unknown 07/31/2023 6:15 AM EDT 07/31/2023 6:29 AM EDT Narrative LAB[facility]ATORY [facility] - 07/31/2023 6:57 AM EDT Warfarin Therapy INR: 2.0-3.0 conventional anticoagulation INR: 2.5-3.5 high intensity anticoagulation Ibrahima Millan MD LAB BLOOD [facility] [address] [address] * BASIC METABOLIC PANEL (07/31/2023 6:15 AM EDT) Pathologist [facility] BUN 16 6 - 20 mg/dL 07/31/2023 7:00 AM EDT LABORATORY [facility] Creatinine 0.9 0.6 - 1.2 mg/dL 07/31/2023 7:00 AM EDT [facility] Estimated Glomerular Filtration Rate >90 >=60 mL/min 07/31/2023 7:00 AM EDT [facility] Comment:eGFR is calculated b ased on the CKD-EPI 2020 equation Sodium 135 135 - 146 mmol/L 07/31/2023 7:00 AM EDT [facility] Potassium 3.8 3.5 - 5.1 mmol/L 07/31/2023 7:00 AM EDT [facility] Chloride 100 98 - 107 mmol/L 07/31/2023 7:00 AM EDT [facility] CO2 24 22 - 32 mmol/L 07/31/2023 7:00 AM EDT [facility] Anion Gap 11 7 - 15 mmol/L 07/31/2023 7:00 AM EDT [facility] Glucose 100 70 - 120 mg/dL 07/31/2023 7:00 AM EDT [facility] Calcium 9.2 8.4 - 10.2 mg/dL 07/31/2023 7:00 AM EDT [facility] Blood Venous blood specimen / Unknown Venipuncture / Unknown 07/31/2023 6:15 AM EDT 07/31/2023 6:29 AM EDT Ibrahima Millan MD LAB BLOOD ORDERABLES LAB[facility]ATORY [facility] [address] [place] [address] * CBC (07/31/2023 6:15 AM EDT) WBC 9.05 4.00 - 10.80 K/uL 07/31/2023 6:40 AM EDT [facility] RBC 4.86 4.50 - 5.25 M/uL 07/31/2023 6:40 AM EDT [facility] HGB 14.5 14.0 - 16.8 g/dL 07/31/2023 6:40 AM EDT [facility] HCT 42.6 40.0 - 48.4 % 07/31/2023 6:40 AM EDT [facility] MCV 87.7 82.0 - 99.5 fL 07/31/2023 6:40 AM EDT [facility] MCH 29.8 27.0 - 34.0 pg 07/31/2023 6:40 AM EDT [facility] MCHC 34.0 32.0 - 36.0 g/dL 07/31/2023 6:40 AM EDT [facility] RDW 13.0 11.5 - 15.5 % 07/31/2023 6:40 AM EDT [facility] PLT 214 140 - 400 K/uL 07/31/2023 6:40 AM EDT [facility] MPV 11.0 6.6 - 11.1 fL 07/31/2023 6:40 AM EDT [facility] nRBCs 0 <=0 /100 WBCs 07/31/2023 6:40 AM EDT [facility] Blood Venous blood specimen / Unknown Venipuncture / Unknown 07/31/2023 6:15 AM EDT 07/31/2023 6:29 AM EDT Ibrahima Millan MD LAB BLOOD ORDERABLES Performing Organization Address [facility] Co de Phone Number [facility] [address] [place] [address] * HEMOGLOBIN A1C (07/31/2023 6:15 AM EDT) [facility] Hemoglobin A1C 5.6 4.0 - 5.6 % 07/31/2023 6:48 AM EDT [facility] Comment:The use of HbA1c to monitor glycemic status is based on normal hemoglobin and HbA composition. This test should not be used in patients with abnormal hemoglobin that affects the half life of the red blood cell or the in vivo glycation rates. Estimated Average Glucose 114 <126 mg/dL 07/31/2023 6:48 AM EDT [facility] Blood Venous blood specimen / Unknown Venipuncture / Unknown 07/31/2023 6:15 AM EDT 07/31/2023 6:29 AM EDT Ibrahima Millan MD LAB BLOOD ORDERABLES Performing Organization Address [facility]/ZIP Co de Phone Number [facility]ORY [facility] [address] [place] [address] * LIPID PANEL WITHOUT DIRECT LDL (07/31/2023 6:15 AM EDT) Triglycerides 109 <=174 mg/dL 07/31/2023 7:00 AM EDT [facility] Comment: Triglyceride Reference Ranges (mg/dL): <150 Acceptable 150-174 Borderline high 175-499 High >=500 Very high Cholesterol 191 <200 mg/dL 07/31/2023 7:00 AM EDT [facility] Comment: Total Cholesterol Reference Ranges (mg/dL): <200 Desirable 200-239 Borderline high >=240 High HDL Cholesterol 47 >39 mg/dL 7:00 AM EDT [facility] Comment: HDL Cholesterol Reference Ranges (mg/dL): >=60 High (Desirable) <50 Low (Undesirable) For Females <40 Low (Undesirable) For Males Non-HDL Cholesterol 144 <=159 mg/dL 07/31/2023 7:00 AM EDT [facility] Comment: Non-HDL Cholesterol Reference Range (mg/dL): <100 Target level for high risk ASCVD patient <130 Optimal for general population 130-159 Near optimal for general population 160-189 Borderline High 190-219 High >=220 Very High LDL Cholesterol 122 <=129 mg/dL 07/31/2023 7:00 AM EDT [facility] Comment: LDL Cholesterol Reference Ranges (mg/dL): <70 Target level for high risk ASCVD patient <100 Optimal for general population 100-129 Near optimal for general population 130-159 Borderline high 160-189 High >=190 Very high Blood Venous blood specimen / Unknown Venipuncture / Unknown 07/31/2023 6:15 AM EDT 07/31/2023 6:29 AM EDT Ibrahima Millan MD LAB BLOOD ORDERABLES [facility] [address] [place] [address] * (ABNORMAL) HEPARIN, UNFRACTIONATED (07/31/2023 1:54 AM EDT) Heparin, Unfractionated 0.49(H) <0.10 IU/mL 07/31/2023 2:09 AM EDT [facility] Comment: Unfractionated therapeutic ranges for Anti Xa activity: For Cardiac/Neurologic treatment: 0.3 to 0.6 IU/mL. For treatment of DVT or Pulmonary Embolism: 0.3 to 0.7 IU/mL. Blood Venous blood specimen / Unknown Venipuncture / Unknown 07/31/2023 1:54 AM EDT 07/31/2023 1:57 AM EDT Ibrahima Millan MD LAB BLOOD ORDERABLES Performing Organization Address [facility] Co de Phone Number [facility]ATORY [facility] [address] [place] [address] * CARDIAC CATHETERIZATION REPORT (07/31/2023) DATE OF PROCEDURE 07/31/2023 [facility] DIAGNOSTIC Jeffy Swenson MD [facility] CONCLUSIONS * Normal coronary arteries by angiography Access: right radial artery [facility] PROCEDURES Coronary Angiography 0:23-0:37 hours:minutes Sedation [facility] TOTAL CONTRAST VOLUME 30 ml [facility] TOTAL RADIATION 0.06 Gy [facility] COMPLICATIONS No complication None [facility] 07/31/2023 07/31/2023 4:5 1 PM EDT Truong Ashley MD CARD CATH Performing Organization Address [facility] Phone Number [facility] * TROPONIN T, HIGH SENSITIVITY (07/30/2023 8:58 PM EDT) Troponin T, High Sensitivity 12 <=22 ng/L 07/30/2023 9:31 PM EDT [facility] Blood Venous blood specimen / Unknown Venipuncture / Unknown 07/30/2023 8:58 PM EDT 07/30/2023 9:02 PM EDT Ibrahima Millan MD LAB BLOOD ORDERABLES Performing Organization Address [facility] Co de Phone Number [facility] [address] [place] [address] * (ABNORMAL) HEPARIN, UNFRACTIONATED (07/30/2023 7:53 PM EDT) Heparin, Unfractionated 0.30(H) <0.10 IU/mL 07/30/2023 8:18 PM EDT [facility] Comment: Unfractionated therapeutic ranges for Anti Xa activity: For Cardiac/Neurologic treatment: 0.3 to 0.6 IU/mL. For treatment of DVT or Pulmonary Embolism: 0.3 to 0.7 IU/mL. Blood Venous blood specimen / Unknown Venipuncture / Unknown 07/30/2023 7:53 PM EDT 07/30/2023 8:04 PM EDT Ibrahima Millan MD LAB BLOOD ORDERABLES LAB[facility]ORY [facility] [address] [place] [address] * CBC (07/30/2023 7:53 PM EDT) Pathologist [facility] WBC 8.57 4.00 - 10.80 K/uL 07/30/2023 8:30 PM EDT LAB[facility] RBC 5.04 4.50 - 5.25 M/uL 07/30/2023 8:30 PM EDT [facility] HGB 15.1 14.0 - 16.8 g/dL 07/30/2023 8:30 PM EDT [facility] HCT 45.1 40.0 - 48.4 % 07/30/2023 8:30 PM EDT LAB[facility] MCV 89.5 82.0 - 99.5 fL 07/30/2023 8:30 PM EDT [facility] MCH 30.0 27.0 - 34.0 pg 07/30/2023 8:30 PM EDT LAB[facility] MCHC 33.5 32.0 - 36.0 g/dL 07/30/2023 8:30 PM EDT [facility] RDW 12.9 11.5 - 15.5 % 07/30/2023 8:30 PM EDT [facility] PLT 242 140 - 400 K/uL 07/30/2023 8:30 PM EDT [facility] MPV 11.4 6.6 - 11.1 fL 07/30/2023 8:30 PM EDT [facility] nRBCs 0 <=0 /100 WBCs 07/30/2023 8:30 PM EDT [facility] Blood Venous blood specimen / Unknown Venipuncture / Unknown 07/30/2023 7:53 PM EDT 07/30/2023 8:04 PM EDT Ibrahima Millan MD LAB BLOOD ORDERABLES Performing Organization Address [facility]/ZIP Co de Phone Number [facility] [address] [place] [address] * (ABNORMAL) APTT (07/30/2023 7:53 PM EDT) aPTT 58(H) 21 - 38 seconds 07/30/2023 8:18 PM EDT [facility] Blood Venous blood specimen / Unknown Venipuncture / Unknown 07/30/2023 7:53 PM EDT 07/30/2023 8:04 PM EDT Narrative [facility] - 07/30/2023 8:18 PM EDT Anticoagulation may affect testing. Refer to [employer] Test Catalog for a list of effects. Ibrahima Millan MD LAB BLOOD ORDERABLES Performing Organization Address [facility] de Phone Number [facility]ORY [facility] [address] [place] [address] * PT INR (07/30/2023 7:53 PM EDT) Prothrombin Time 13.2 11.6 - 15.2 seconds 07/30/2023 8:17 PM EDT [facility] INR 1.0 0.8 - 1.2 07/30/2023 8:17 PM EDT [facility] Blood Venous blood specimen / Unknown Venipuncture / Unknown 07/30/2023 7:53 PM EDT 07/30/2023 8:04 PM EDT Narrative [facility] - 07/30/2023 8:17 PM EDT Warfarin Therapy INR: 2.0-3.0 conventional anticoagulation INR: 2.5-3.5 high intensity anticoagulation Ibrahima Millan MD LAB BLOOD ORDERABLES [facility] [address] [place] [address] documented in this encounter Visit Diagnoses Diagnosis NSTEMI (non-ST elevated myocardial infarction) (HCC)- Primary Acute myocardial infarction, subendocardial infarction, episode of care unspecified CAD (coronary artery disease) Coronary atherosclerosis of unspecified type of vessel, campo or graft Chest pain, unspecified type ACS (acute coronary syndrome) (HCC) Intermediate coronary syndrome History of coronary vasospasm Personal history of other diseases of circulatory system CAD (coronary artery disease) Coronary atherosclerosis of unspecified type of vessel, campo or graft Marijuana smoker Cannabis abuse, unspecified Anxiety Anxiety state, unspecified HTN (hypertension) Unspecified essential hypertension History of coronary vasospasm Personal history of other diseases of circulatory system documented in this encounter Administered Medications Inactive Administered Medications - up to 3 most recent administrations Medication Order MAR Action Action Date Dose Rate Site Acetaminophen (Tylenol) tab 650 mg 650 mg, Oral, Q6H PRN Pain, Mild, Other, non cardiac pain, Starting on Sun07/31/23 at 1416, Until Sun07/31/23 at 2159, Maximum of 4 grams (4000 mg) per day., Post-op aspirin chew tab 81 mg 81 mg, Oral, Daily(AM), First dose on Sun07/31/23 at 0900, Until Discontinued Given 07/31/2023 8:01 AM EDT 81 mg fentaNYL (PF) inj 25 mcg 25 mcg, IV Push, PRN Pain, Severe, Starting on Sun07/31/23 at 1351, Until Sun07/31/23 at 1430, For 2 hours, To be administered in Cardiac [employer] intra-procedure only When given IV Push its recommended that the dose be given over 3 to 5 minutes. , Intra-Op Given 07/31/2023 1:49 PM EDT 25 mcg hEParin 25,000 units in 250 mL (Xa-Cardiac) infusion Intravenous, at 0-22.17 mL/hr, Start heparin as soon as baseline labs are drawn. Please select this medication from the infusion pump library! Concentration: 100 units/mL Expires 96 hours after spiking on (date) at (hour) , TITRATE, Starting on Sun07/30/23 at 1945, Until Sun07/31/23 at 1502 Rate Verify 07/31/2023 9:12 AM EDT 12 Units/kg/hr 8.87 mL/hr Nurse Change 07/31/2023 7:21 AM EDT 12 Units/kg/hr 8.87 mL /hr Rate Verify 07/31/2023 2:27 AM EDT 12 Units/kg/hr 8.87 mL/ hr hEParin inj 5,000 Units 5,000 Units, IV Push, PRN Other, Anticoagulation not at goal, Starting on Sun07/31/23 at 1351, Until Sun07/31/23 at 1430, For 2 hours, To be administered in Cardiac [employer] intra-procedure., Intra-Op Given 07/31/2023 2:03 PM EDT 5,000 Units influenza virus vaccine, quadrivalent (Flulaval Quad) inj 0.5 mL Intramuscular, 0.5 mL (1 Syringe), Add Lot# and Accuracy Expert in Immunization Info section of MAR ! Store in Refrigerator SHAKE WELL PRIOR TO ADMINISTRATION RX WASTE CODE- BKC, ONCE, 1 dose, On Sun07/31/23 at 1800 Ioversol (Optiray 350) 74 % inj 30 mL 30 mL, Intracoronary, ONCE, On Sun07/31/23 at 1500, For 1 dose, Intra-Op Given 07/31/2023 2:15 PM EDT 30 mL Metoprolol Tartrate (Lopressor) tab 25 mg 25 mg, Oral, BID (.AM/PM), First dose on Sun07/31/23 at 0900, Until Discontinued, Hold for HR less than 60 or SBP below 100 and notify service if dose is held Given 07/31/2023 8:01 AM EDT 25 mg midazolam (Versed) 2 MG/2ML inj 1 mg 1 mg, IV Push, PRN Anxiety, Starting on Sun07/31/23 at 1351, Until Sun07/31/23 at 1430, For 2 hours, To be administered in Cardiac [employer] intra-procedure only, Intra-Op Given 07/31/2023 1:49 PM EDT 1 mg Nitroglycerin (Nitrostat) sl tab 0.4 mg 0.4 mg, Sublingual, ONCE, On Sun07/31/23 at 1445, For 1 dose, To be administered in Cardiac [employer] intra-procedure., Intra-Op Given 07/31/2023 2:03 PM EDT 0.4 mg potassium chloride ER tab 20 mEq 20 mEq, Oral, ONCE, On Sun07/31/23 at 0915, For 1 dose, This med should NOT be Crushed or Chewed Given 07/31/2023 10:23 AM EDT 20 mEq documented in this encounter Active and Recently Administered Medications Times are shown in EDT. Scheduled Medication Order 07/29/2023 07/30/2023 07/31/2023 aspirin chew tab 81 mg (CANCELED) 81 mg, Oral, Daily(AM), First dose on Sun07/31/23 at 0900, Until Discontinued 0801 (Given - Provid er: Dian Willson RN) influenza virus vaccine, quadrivalent (Flulaval Quad) inj 0.5 mL Intramuscular, 0.5 mL (1 Syringe), Add Lot# and Accuracy Expert in Immunization Info section of MAR ! Store in Refrigerator SHAKE WELL PRIOR TO ADMINISTRATION RX WASTE CODE- BKC, ONCE, 1 dose, On Sun07/31/23 at 1800 Ioversol (Optiray 350) 74 % inj 30 mL (COMPLETED) 30 mL, Intracoronary, ONCE, On Sun07/31/23 at 1500, For 1 dose, Intra-Op 1415 (Given - Provid er: Emily Tineo RN) Metoprolol Tartrate (Lopressor) tab 25 mg (CANCELED) 25 mg, Oral, BID (.AM/PM), First dose on Sun07/31/23 at 0900, Until Discontinued, Hold for HR less than 60 or SBP below 100 and notify service if dose is held 08 (Given - Provid er: Dian Willson RN) Nitroglycerin (Nitrostat) sl tab 0.4 mg (COMPLETED) 0.4 mg, Sublingual, ONCE, On Sun07/31/23 at 1445, For 1 dose, To be administered in Cardiac [employer] intra-procedure., Intra-Op 1403 (Given - Provid er: Loren Edwards RN) potassium chloride ER tab 20 mEq (COMPLETED) 20 mEq, Oral, ONCE, On Sun07/31/23 at 0915, For 1 dose, This med should NOT be Crushed or Chewed 1023 (Given - Provid er: Dian Willson, CHANDU) Continuous Medication Order 07/29/2023 07/30/2023 07/31/2023 hEParin 25,000 units in 250 mL (Xa-Cardiac) infusion (CANCELED) Intravenous, at 0-22.17 mL/hr, Start heparin as soon as baseline labs are drawn. Please select this medication from the infusion pump library! Concentration: 100 units/mL Expires 96 hours after spiking on (date) at (hour) , TITRATE, Starting on Sun07/30/23 at 1945, Until Sun07/31/23 at 1502 2005 (New Bag - Provider: Hemalatha Childress, CHANDU) 0227 (Rate Verify - Provider: Hemalatha Childress, CHANDU)0721 (Nurse Change - Provider: Dian Willson, CHANDU)0912 (Rate Verify - Provider: Dian Willson RN) PRN Medication Order 07/29/2023 07/30/2023 07/31/2023 Acetaminophen (Tylenol) tab 650 mg 650 mg, Oral, Q6H PRN Pain, Mild, Other, non cardiac pain, Starting on Sun07/31/23 at 1416, Until Sun07/31/23 at 2159, Maximum of 4 grams (4000 mg) per day., Post-op fentaNYL (PF) inj 25 mcg (CANCELED) 25 mcg, IV Push, PRN Pain, Severe, Starting on Sun07/31/23 at 1351, Until Sun07/31/23 at 1430, For 2 hours, To be administered in Cardiac [employer] intra-procedure only When given IV Push its recommended that the dose be given over 3 to 5 minutes. , Intra-Op 1349 (Given - Provid er: Loren Edwards RN) hEParin inj 5,000 Units (CANCELED) 5,000 Units, IV Push, PRN Other, Anticoagulation not at goal, Starting on Sun07/31/23 at 1351, Until Sun07/31/23 at 1430, For 2 hours, To be administered in Cardiac [employer] intra-procedure., Intra-Op 1403 (Given - Provid er: Loren Edwards RN) midazolam (Versed) 2 MG/2ML inj 1 mg (CANCELED) 1 mg, IV Push, PRN Anxiety, Starting on Sun07/31/23 at 1351, Until Sun07/31/23 at 1430, For 2 hours, To be administered in Cardiac [employer] intra-procedure only, Intra-Op 1349 (Given - Provid er: Loren Edwards RN) documented in this encounter Advance Directives Latest Code Status on File Code Status Date Activated Date Inactivated Comments Full Code 07/30/2023 7:04 PM 07/31/2023 9:59 PM This order reflects the patients wishes and were consensually agreed upon. Question Answer Comments Discussion of Advance Directives occurred with: Patient Care Teams Health Evaluator Relationship Specialty Start Date End Date Manuel Cobb III, MD [address] [facility] [place] [address] PCP - General Family Medicine 07/24/23 documented as of this encounter
--- OUTSIDE RECORDS SUMMARY | 2023-09-04 17:33 | External Medical Summary | Summary of Care ---
Author Name Unknown Organization [facility] Address [address] [place] [address] Phone [phone] Care Team Providers Care Ammonium Sulfate Operator Name Role Phone Jordyn MILTON MD, John E Primary Care Provider [phone] Reason for Visit * Reason Comments NEW PATIENT Encounter Details Date Type Department Care Team Description 07/24/2023 Office Visit Family Practice Charles Juárez [place] [address] [facility] [place] [address] Manuel Cobb III, MD [address] [place] [address] Routine medical exam*; HTN, goal below 140/90 Allergies No known active allergiesdocumented as of this encounter (statuses as of 07/24/2023) Medications Medication Sig Dispensed Refills Start Date End Date Status amLODIPine Besy-Benazepril HCl 5-20 MG Oral Capsule (Lotrel) Take 1 Capsule by mouth in the morning. 30 Capsule 5 07/24/2023 Active documented as of this encounter (statuses as of 07/24/2023) Active Problems No known active problems documented as of this encounter (statuses as of 07/24/2023) Social History Tobacco Use Types Packs/Day Years [...] Sign Reading Time Taken Comments Blood Pressure 164/108 07/24/2023 10:43 AM EDT Pulse 68 07/24/2023 10:43 AM EDT Temperature 36.3 C (97.4 F) 07/24/2023 10:43 AM E DT Respiratory Rate 16 07/24/2023 10:43 AM EDT Oxygen Saturation - - Inhaled Oxygen Concentration - - Weight 82.1 kg (181 lb) 07/24/2023 10:43 AM EDT Height 172.7 cm (5' 8") 07/24/2023 10:43 AM EDT Body Mass Index 27.52 07/24/2023 10:43 AM EDT documented in this encounter Progress Notes * Manuel Cobb III, MD - 07/24/2023 11:21 AM EDT Subjective: Lon Alvarado is a 48 year old male. Chief Complaint Patient presents with NEW PATIENT HPI: New patient physical examination developed a rash on his arms hands and legs comes in goes last several hours at a time raise little red bumps there not itchy has no associated swallowing difficulties or shortness a breath 1 day did have some greenish diarrhea when this was occurring no fever or chills had been very active before COVID not getting as much in the way of exercise currently eyes last checked years back sees dentist regularly no hearing concerns no swallowing difficulties no exertional chest pain shortness a breath no claudication no swelling of his ankles no blood in his stools no dysuria or hematuria no lumps or swelling in the groin area PMH: There is no problem list on file for this patient. Current Outpatient Medications Medication Sig Dispense Refill amLODIPine Besy-Benazepril HCl 5-20 MG Oral Capsule (Lotrel) Take 1 Capsule by mouth in the morning. 30 Capsule 5 No current facility-administered medications for this visit. Review of patient's allergies indicates: No Known Allergies No past medical history on file. Past Surgical History: Procedure Laterality Date DENTAL SURGERY PROCEDURE NEC DE APPENDECTOMY 1984 Objective: The patient is a 48 year old male BP 164/108 | Pulse 68 | Temp 36.3 C (97.4 F) | Resp 16 | Ht 1.727 m (5' 8") | Wt 82.1 kg (181 lb) | BMI 27.52 kg/m | BSA 1.98 m General: alert, healthy, and no distress Eye Exam: PERRLA, extraocular movements intact, conjunctiva are pink and non- injected, sclera clear Ears: External ears normal, Canals clear, TM's Normal Oropharynx: no exudate, no erythema, lips, buccal mucosa, and tongue normal, and mucous membranes are moist Neck: supple, no adenopathy, no bruits, thyroid normal size, non-tender, without nodularity Heart: regular rate & rhythm, no murmur, and no gallops Lungs: lungs clear to auscultation Pulses: carotid=2/4 w/o bruits Abdomen: abdomen soft, non-tender, normal bowel sounds, and no masses or organomegaly Extremities: no edema, no clubbing, no cyanosis Neuro Exam: alert & oriented x 3 with fluent speech, reflexes normal and symmetric Exam (Male): no abnormalities of scrotal contents, no hernia detected Rectal: prostate and seminal vesicles non-tender without nodules ASSESSMENT: Z00.00 Routine medical exam (primary encounter diagnosis) I10 HTN, goal below 140/90 PLAN: Sun protection discussed flu vaccine encouraged begin Lotrel 03/10 daily check blood pressure nurse 2 weeks colon cancer screening discussed check comprehensive metabolic panel lipids Follow up in 3 month(s). Manuel Cobb III, MD * Violet Castillo RN - 07/24/2023 10:42 AM EDT Has more congestion than he used to. Has not been to a doctor in 15 years. Has medi [facility] marijuana card. documented in this encounter Plan of Treatment Upcoming Encounters Date Type Specialty Care Team Description 08/07/2023 Nurse Only Ancillary Nurse Joseph Ju[facility]rez [facility] [address] [place] [address] 11/07/2023 Office Visit Family Medicine Manuel Cobb III, MD [address] [place], [place] [address] Scheduled Orders Name Type Priority Associated Diagnoses Orde r Schedule LIPID PANEL WITH DIRECT LDL IF TG IS HIGH Lab Routine HTN, goal below 140/90 Expected: 07/24/2023, Expires: 07/24/2024 COMPREHENSIVE METABOLIC PANEL Lab Routine HTN, goal below 140/90 Expected: 07/24/2023 (Approximate), Expires: 07/23/2024 Health Maintenance Due Date Last Done Comments [...] as of this encounter Visit Diagnoses Diagnosis Routine medical exam- Primary Routine general medical examination at a health care facility HTN, goal below 140/90 Unspecified essential hypertension documented in this encounter Care Teams Ammonium Sulfate Operator Relationship Specialty Start Date End Date Manuel Cobb III, MD [address] [place] [address], [place] [address] PCP - General Family Medicine 07/24/23 documented as of this encounter
--- OUTSIDE RECORDS SUMMARY | 2023-09-04 17:33 | External Medical Summary ---
Author Name Unknown Address Unknown Organization [id number]:LAB[facility]ATORY [facility] - [address] [facility] [address] Laboratory Report Ordering Provider Test Date Status ELLY SANTIAGO 07/31/2023 11:31:17 Final Cutoff Concentrations:
Drug Level
Amphetamines 500 ng/mL
Benzodiazepines 100 ng/mL
Cannabinoids 50 ng/mL
Cocaine Metabolite 150 ng/mL
Fentanyl 1 ng/mL
Hydrocodone / Hydromorphone 300 ng/mL
Methadone Metabolite 100 ng/mL
Morphine / Codeine 300 ng/mL
Oxycodone / Oxymorphone 100 ng/mL

Screening results are presumptive and can only be used for medical purposes. Positive screening results are reflexed to confirmatory testing. Observation Date Value Abnormality Reference (Units ) Status Amphetamines, Urine screen 07/31/2023 11:31:17 Negative Negative Final Benzodiazepines, Urine screen 07/31/2023 11:31:17 Negative Negative Final Cannabinoids, Urine screen 07/31/2023 11:31:17 Positive Abnormal Negative Final Cocaine Metabolite, Urine screen 07/31/2023 11:31:17 Negative Negative Final fentaNYL [Presence] in Urine by Screen method 07/31/2023 11:31:17 Negative Negative Final HYDROcodone [Presence] in Urine by Screen method 07/31/2023 11:31:17 Negative Negative Final 6-Kyogrmmsky-6,5-Dimeth yl-3,3-Diphenylpyrrolid ine (EDDP) [Presence] in Urine 07/31/2023 11:31:17 Negative Negative Final Opiates, Urine screen 07/31/2023 11:31:17 Negative Negative Final oxyCODONE [Presence] in Urine by Screen method 07/31/2023 11:31:17 Negative Negative Final Performing Location LAB[facility]ATORY [facility] - [address] [facility] [id number]
--- OUTSIDE RECORDS SUMMARY | 2023-09-04 17:33 | External Medical Summary ---
Author Name Unknown Address Unknown Organization [id number]:[facility]ORY [facility] [place] - [address] [place] [address] Laboratory Report Ordering Provider Test Date Status SURY SANDHU 07/31/2023 06:15:00 Final Observation Date Value Abnormality Reference (Units ) Status BUN 07/31/2023 06:15:00 16 6-20 (mg/dL) Final Creatinine 07/31/2023 06:15:00 0.9 0.6-1.2 (mg/dL) Final Glomerular filtration rate/1.73 sq M.predicted [Volume Rate/Area] in Serum, Plasma or Blood by Creatinine-based formula (CKD-EPI) 07/31/2023 06:15:00 >90 >=60 (mL/min) Final eGFR is calculated based on the CKD-EPI 2020 equation SODIUM 07/31/2023 06:15:00 135 135-146 (m mol/L) Final Potassium 07/31/2023 06:15:00 3.8 3.5-5.1 (m mol/L) Final Cl 07/31/2023 06:15:00 100 98-107 (mm ol/L) Final CO2 07/31/2023 06:15:00 24 22-32 (mmo l/L) Final Anion gap 07/31/2023 06:15:00 11 7-15 (mmol /L) Final Glucose 07/31/2023 06:15:00 100 70-120 (mg /dL) Final Calcium 07/31/2023 06:15:00 9.2 8.4-10.2 ( mg/dL) Final Performing Location [facility] [place] - [address] [place] [id number]
== END 2023-09-01 14:45 | disposition home or self-care (01) ==
LOC: EDINP 17:15 → ED 17:15 → EDINP 09-01 14:32